=== PATIENT | male | born 1965 | race Caucasian/White ===

== ENCOUNTER 2017-03-25 10:32 | Observation (INO) | payer OTHER ==
--- NOTE | 2017-03-25 11:01 | ER Document Report ---
ED Medical Screen (RME) - General Chief Complaint: Chest Pain Stated Complaint: CHEST PAIN Time Seen by Provider: 03/25/17 10:49 Mode of Arrival: Ambulatory Information source: Patient Notes: 52-year-old male no previous medical history who did have a normal stress test presents with 1.5 hours of left sided chest pain I have greeted and performed a rapid initial assessment of this patient. A comprehensive ED assessment and evaluation of the patient, analysis of test results and completion of the medical decision making process will be conducted by additional ED providers. PHYSICAL EXAMINATION: GENERAL: Well-appearing, well-nourished and in no acute distress. HEAD: Atraumatic, normocephalic. EYES: Pupils equal round extraocular movements intact, conjunctiva are normal. ENT: Nares patent NECK: Normal range of motion LUNGS: No respiratory distress Musculoskeletal: Normal range of motion NEUROLOGICAL: Normal speech, normal gait. PSYCH: Normal mood, normal affect. SKIN: Warm, Dry, normal turgor, no rashes or lesions noted. TRAVEL OUTSIDE OF THE [place] IN LAST 30 DAYS: No - Related Data Allergies/Adverse Reactions: No Known Allergies Allergy (Verified 03/25/17 10:51) Home Medications: Current Home Medications No Home Medications 03/25/17 [History] Past Medical History Renal/ Medical History: Denies: Hx Peritoneal Dialysis Past Surgical History: Reports: Hx Orthopedic Surgery - Collar bone - Immunizations Hx Diphtheria, Pertussis, Tetanus Vaccination: Yes Physical Exam - Vital signs Vitals: Temp Pulse Resp BP Pulse Ox 98.4 F 78 14 124/87 H 96 03/25/17 10:45 03/25/17 10:45 03/25/17 10:45 03/25/17 10:45 03/25/17 10:45 Course - Vital Signs Vital signs: Temp Pulse Resp BP Pulse Ox 98.4 F 78 14 124/87 H 96 03/25/17 10:45 03/25/17 10:45 03/25/17 10:45 03/25/17 10:45 03/25/17 10:45
[2017-03-25] MEDS ORDERED: ASPIRIN 81 MG TABLET, CHEWABLE PO ONE (11:05)
[2017-03-25 11:41] LABS: ABSOLUTE EOSINOPHILS # (AUTO) 0.1 10^3/uL (0.0-0.6); ABSOLUTE LYMPHOCYTES (AUTO) 1.2 10^3/uL (0.5-4.7); ABSOLUTE MONOCYTES (AUTO) 0.4 10^3/uL (0.1-1.4); ABSOLUTE NEUT (AUTO) 2.8 10^3/uL (1.7-8.2); BASOPHILS % (AUTO) 0.3 % (0-2); EOSINOPHILS % (AUTO) 1.1 % (0-6); HEMATOCRIT 44.6 % (37.9-51.0); HEMOGLOBIN 15.3 g/dL (13.5-17.0); HGB HCT DIFFERENCE 1.3; LYMPHOCYTES % (AUTO) 26.5 % (13-45); MEAN CORPUSCULAR HEMOGLOBIN 35.6 pg (27.0-33.4); MEAN CORPUSCULAR HGB CONC 34.4 g/dL (32.0-36.0); MEAN CORPUSCULAR VOLUME 103 fl (80-97); MONOCYTES % (AUTO) 9.6 % (3-13); RED BLOOD COUNT 4.31 10^6/uL (4.35-5.55); RED CELL DISTRIBUTION WIDTH 13.3 % (11.5-14.0); SEGMENTED NEUTROPHILS % (AUTO) 62.5 % (42-78); WHITE BLOOD COUNT 4.5 10^3/uL (4.0-10.5)
--- NOTE | 2017-03-25 11:47 | ER Document Report ---
ED Cardiac - General Chief Complaint: Chest Pain Stated Complaint: CHEST PAIN Time Seen by Provider: 03/25/17 10:49 Mode of Arrival: Ambulatory Information source: Patient Notes: 52-year-old male with past medical history of chest pain 1 with unremarkable stress test around 18 months ago according to the patient presents today with the onset initially upon awakening of 3 out of 10 maximal back pain. He states the pain then radiated to his chest with 10 out of 10 intensity. He denies however any nausea, vomiting, diaphoresis, shortness of breath, calf pain, leg swelling, coughing, or fevers. He states the pain has subsided at this time. He denies any recent trips or travel. Patient does smoke but denies any family history of early heart attacks or strokes. 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 TRAVEL OUTSIDE OF THE [place] IN LAST 30 DAYS: No - HPI Patient complains to provider of: Chest pain - See above Use of: Other - See above Was the onset of pain: Gradual Quality of pain: Other - See above Chest pain radiation location: Back Severity now: None Severity at worst: Severe Pain level currently: Denies Cardiac risk factors: None Associated symptoms: Other - See above Exacerbated by: Denies Relieved by: Nothing Similar symptoms previously: Yes Recently seen / treated by doctor: No - Related Data Allergies/Adverse Reactions: No Known Allergies Allergy (Verified 03/25/17 10:51) Home Medications: Current Home Medications No Home Medications 03/25/17 [History] Past Medical History - General Information source: Patient - Social History Smoking Status: Current Some Day Smoker Cigarette use (# per day): Yes Chew tobacco use (# tins/day): No Smoking Education Provided: No Frequency of alcohol use: None Family History: Reviewed & Not Pertinent Patient has suicidal ideation: No Patient has homicidal ideation: No Renal/ Medical History: Denies: Hx Peritoneal Dialysis Past Surgical History: Reports: Hx Orthopedic Surgery - Collar bone - Immunizations Hx Diphtheria, Pertussis, Tetanus Vaccination: Yes Review of Systems - Review of Systems Constitutional: denies: Fever EENT: denies: Eye discharge, Nose discharge Cardiovascular: denies: Palpitations, Syncope Respiratory: denies: Short of breath Gastrointestinal: denies: Vomiting Genitourinary: denies: Dysuria Musculoskeletal: denies: Leg swelling Skin: Other - no hives. denies: Rash Neurological/Psychological: Other - no slurred speech -: Yes All other systems reviewed and negative Physical Exam - Vital signs Vitals: Temp Pulse Resp BP Pulse Ox 98.4 F 78 14 124/87 H 96 03/25/17 10:45 03/25/17 10:45 03/25/17 10:45 03/25/17 10:45 03/25/17 10:45 Notes: Reviewed vital signs and nursing note as charted by RN. CONSTITUTIONAL: Alert and oriented and responds appropriately to questions. Well -appearing; well-nourished HEAD: Normocephalic; atraumatic CARD: Regular rate and rhythm; no murmurs, no clicks, no rubs, no gallops; symmetric distal pulses RESP: Normal chest excursion without splinting or tachypnea; breath sounds clear and equal bilaterally ABD/GI: Normal bowel sounds; non-distended; soft, non-tender, no rebound, no guarding; no palpable organomegaly or masses BACK: The back appears normal and is non-tender to palpation, there is no CVA tenderness EXT: Normal ROM in all joints; non-tender to palpation; no cyanosis, no effusions, no edema SKIN: Normal color for age and race; warm; dry; good turgor; capillary refill < 2 seconds; no acute lesions noted NEURO: Moves all extremities equally; Motor and sensory function intact PSYCH: The patient's mood and manner are appropriate. Grooming and personal hygiene are appropriate. Course - Re-evaluation Re-evalutation: 03/25/17 11:46 Given the above history and physical examination, I have a very low pretest probability for pulmonary embolism. Given the patient's initial back pain radiating to his chest with a transient. Of 10 out of 10 pain, I will evaluate the aorta with a CT chest. I will also obtain 2 sets cardiac enzymes by 3 hours. Patient has a heart score of 2. EKG is unremarkable as recorded. Pt was provided aspirin at triage. Heart rate 78, normal sinus rhythm, normal axis, no obvious ST elevation or depression 03/25/17 12:54 First set of cardiac enzymes is unremarkable. Blood pressure stable. Repeat troponin is ordered for 1:15 PM. Patient is stating that his chest discomfort is returning. It is currently 3 out of 10. He denies any back pain. Repeat EKG and nitroglycerin has been ordered. 03/25/17 13:00 Patient has a normal CTA of the chest. 03/25/17 13:28 Repeat EKG shows a heart rate of 68, normal sinus rhythm, normal axis, no obvious ST elevation or depression. Possibly new inverted T-wave in lead III. Glycerin has improved the pain. Patient will be admitted to the cardiology service. It appears that the patient did not receive a stress test after talking directly to Dr. Plaza the rehabilitation therapy technician. - Vital Signs Vital signs: Temp Pulse Resp BP Pulse Ox 98.4 F 78 14 124/87 H 96 03/25/17 10:45 03/25/17 10:45 03/25/17 10:45 03/25/17 10:45 03/25/17 10:45 - Laboratory Result Diagrams: 03/25/17 11:15 03/25/17 11:15 Laboratory results interpreted by me: 03/25/17 11:15 RBC 4.31 L MCV 103 H MCH 35.6 H Discharge - Discharge Clinical Impression: Chest pain Qualifiers: Chest pain type: unspecified Qualified Code(s): R07.9 - Chest pain, unspecified Condition: Good Disposition: ADMITTED OBSERVATION Unit Admitted: Telemetry
[2017-03-25 11:56] LABS: ALANINE AMINOTRANSFERASE 31 U/L (21-72); ALBUMIN 4.4 g/dL (3.5-5.0); ALKALINE PHOSPHATASE 81 U/L (38-126); ANION GAP 9 (5-19); ASPARTATE AMINO TRANSFERASE 26 U/L (17-59); BILIRUBIN,DIRECT 0.4 mg/dL (0.0-0.4); BILIRUBIN,TOTAL 0.6 mg/dL (0.2-1.3); BLOOD UREA NITROGEN 17 mg/dL (7-20); CALCIUM 9.5 mg/dL (8.4-10.2); CARBON DIOXIDE 25 mmol/L (22-30); CHLORIDE 107 mmol/L (98-107); CREATINE KINASE 93 U/L (55-170); CREATININE RESULT 0.85 mg/dL (0.52-1.25); GLUCOSE 75 mg/dL (75-110); POTASSIUM 4.8 mmol/L (3.6-5.0); SODIUM 140.9 mmol/L (137-145); TOTAL PROTEIN 7.2 g/dL (6.3-8.2)
--- NOTE | 2017-03-25 12:05 | RADIOLOGY REPORT (SQ) ---
EXAM DESCRIPTION: CHEST SINGLE VIEW COMPLETED DATE/TIME: 03/25/2017 11:58 am REASON FOR STUDY: chest pain COMPARISON: 10/01/2015 EXAM PARAMETERS: NUMBER OF VIEWS: One view. TECHNIQUE: Single frontal radiographic view of the chest acquired. RADIATION DOSE: NA LIMITATIONS: None. FINDINGS: LUNGS AND PLEURA: No suspicious masses, consolidation or effusions. Nodular density in th e left base is most consistent with prominent nipple shadow. MEDIASTINUM AND HILAR STRUCTURES: No masses. Contour normal. HEART AND VASCULAR STRUCTURES: Heart normal in size. Normal vasculature. BONES: No acute findings. HARDWARE: None in the chest. OTHER: No other significant finding. IMPRESSION: NO ACUTE RADIOGRAPHIC FINDING IN THE CHEST. TECHNICAL DOCUMENTATION: JOB ID: [id number]
[2017-03-25 12:09] LABS: CREATINE KINASE MB 0.61 ng/mL (<4.55)
[2017-03-25 12:25] LABS: TROPONIN I < 0.012 ng/mL
--- NOTE | 2017-03-25 12:55 | RADIOLOGY REPORT (SQ) ---
EXAM DESCRIPTION: CTA CHEST COMPLETED DATE/TIME: 03/25/2017 12:32 pm REASON FOR STUDY: MP; eval for aortic dissection COMPARISON: None. TECHNIQUE: CT scan of the chest performed using helical scanning technique with dynamic intravenous contrast injection. Images reviewed with lung, soft tissue and bone windows. Reconstructed coronal and sagittal MPR images reviewed. Additional 3 dimensional post-processing performed to develop Maximal Intensity Projection images (OR P). All images stored on PACS. All CT scanners at this facility use dose modulation, iterative reconstruction, and/or weight based d osing when appropriate to reduce radiation dose to as low as reasonably achievable (ALARA). [facility]: Dose Right [facility]: CareDose [facility]: Dose Right [facility]: Teradose 4D [facility]: Uni2 CONTRAST TYPE AND DOSE: contrast/concentration: Isovue 370.00 mg/ml; Total Contrast Delivered: 58.0 ml; Total Saline Delivered: 79.9 ml RENAL FUNCTION: Creatinine 0.9 BUN 17 RADIATION DOSE: Up-to-date CT equipment and radiation dose reduction techniques were employed. CTDIv ol: 16.2 - 26.4 mGy. DLP: 696 mGy-cm. . LIMITATIONS: The timing of imaging was such that the pulmonary arteries are no longer opacified. FINDINGS: LUNGS AND PLEURA: There is a densely calcified 12 mm granuloma in the left lower lung. No pulmonary masses or infiltrates are present. There is no pleural effusion. AORTA AND GREAT VESSELS: No aneurysm or dissection. HEART: No pericardial effusion. PULMONARY ARTERIES: The pulmonary arteries are not opacified. HILAR AND MEDIASTINAL STRUCTURES: No identified masses or abnormal nodes. HARDWARE: None in the chest. UPPER ABDOMEN: The liver is of low attenuation. No other significant finding is seen in the abdomen. THYROID AND OTHER SOFT TISSUES: No masses. No adenopathy. BONES: No acute or significant finding. 3D MIPS: Confirm above findings. OTHER: No other significant finding. IMPRESSION: 1. There is no aortic aneurysm or dissection. 2. The pulmonary arteries are not evaluated. 3. There is fatty infiltration of the liver. TECHNICAL DOCUMENTATION: JOB ID: [id number] Quality ID # [id number]: Final reports with documentation of one or more dose reduction techniques (e.g., Au tomated exposure control, adjustment of the mA and/or kV according to patient size, use of iterative reconstruction technique) 2010 [employer]- All Rights Reserved
[2017-03-25] MEDS ORDERED: NITROGLYCERIN 2% OINTMENT 1 GM PACKET TP ONE (12:59)
[2017-03-25] MEDS: NITROGLYCERIN 0.4 MG/TAB 25 TAB/BOTTLE SL PRN ×2 (13:05→13:41)
[2017-03-25] MEDS ORDERED: NITROGLYCERIN 0.4 MG/TAB 25 TAB/BOTTLE SL PRN (13:37)
[2017-03-25] MEDS ORDERED: ONDANSETRON HCL INJ/PF 4 MG/2 ML SDV IV PRN (13:37)
[2017-03-25] MEDS ORDERED: TEMAZEPAM 15 MG CAPSULE PO PRN (13:37)
[2017-03-25] MEDS ORDERED: LIDOCAINE 2% VISCOUS SOLN 20 ML UDCUP PO ONE (14:01)
[2017-03-25] MEDS ORDERED: MAG HYDROX/AL HYDROX/SIMETH SUSP 30 ML UDCUP PO ONE (14:01)
[2017-03-25] MEDS ORDERED: METOCLOPRAMIDE HCL ORAL SOLN 10 MG/10 ML UDCUP PO ONE (14:01)
--- NOTE | 2017-03-25 15:34 | PDOC H&P ---
History of Present Illness Admission Date/PCP: 03/25/17 13:33 Patient complains of: Left sided chest pain History of Present Illness: REINA HODGE is a 52-year-old male with past medical history of chest pain that is nonradiating, tobacco abuse, unknown lipids and GERD; with unremarkable stress test around 18 months ago. He presents today with the onset of left sided chest pain that began initially upon awakening that he rates 3 out of 10 and began initially in his back. He states the pain then radiated to his chest with 10 out of 10 intensity. He denies however any nausea, vomiting, diaphoresis, shortness of breath, calf pain, leg swelling, coughing, or fevers. He states the pain has subsided by the time he reached the ER. The pain did reoccur an hour later in the ER and was relieved with one sl nitroglycerine. He denies any recent trips or travel. Patient does smoke but denies any family history of early heart attacks or strokes. 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 Past Medical History Cardiac Medical History: Reports: None Pulmonary Medical History: Reports: None EENT Medical History: Reports: None Neurological Medical History: Reports: None Endocrine Medical History: Reports: None Renal/ Medical History: Reports: None Malignancy Medical History: Reports: None GI Medical History: Reports: Gastroesophageal Reflux Disease Musculoskeltal Medical History: Reports: None Skin Medical History: Reports: None Psychiatric Medical History: Reports: Tobacco Dependency Traumatic Medical History: Reports: None Hematology: Reports: None Infectious Medical History: Reports: None Past Surgical History Past Surgical History: Reports: Orthopedic Surgery - Collar bone Social History Information Source: Patient Lives with: Family Smoking Status: Current Some Day Smoker Cigarettes Packs Per Day: 0.5 Number of Years Smokin Frequency of Alcohol Use: Social Hx Recreational Drug Use: No Hx Prescription Drug Abuse: No - Advance Directive Resuscitation Status: Full Code Surrogate healthcare decision maker:: , Yojana Family History Family History: Hypertension Parental Family History Reviewed: Yes Children Family History Reviewed: Yes Sibling(s) Family History Reviewed.: Yes Medication/Allergy Home Medications: No Home Medications 03/25/17 Allergies/Adverse Reactions: No Known Allergies Allergy (Verified 03/25/17 10:51) Review of Systems Constitutional: ABSENT: chills, fever(s), headache(s), weight gain, weight loss Eyes: ABSENT: visual disturbances Ears: ABSENT: hearing changes Cardiovascular: PRESENT: chest pain Respiratory: ABSENT: cough, hemoptysis Gastrointestinal: ABSENT: abdominal pain, constipation, diarrhea, hematemesis, hematochezia, nausea, vomiting Genitourinary: ABSENT: dysuria, hematuria Musculoskeletal: ABSENT: joint swelling Integumentary: ABSENT: rash, wounds Neurological: ABSENT: abnormal gait, abnormal speech, confusion, dizziness, focal weakness, syncope Psychiatric: ABSENT: anxiety, depression, homidical ideation, suicidal ideation Endocrine: ABSENT: cold intolerance, heat intolerance, polydipsia, polyuria Hematologic/Lymphatic: ABSENT: easy bleeding, easy bruising Physical Exam Vital Signs: Temp Pulse Resp BP Pulse Ox 98.4 F 78 18 123/87 H 97 03/25/17 10:45 03/25/17 10:45 03/25/17 14:01 03/25/17 14:00 03/25/17 14:01 General appearance: PRESENT: no acute distress, well-developed, well-nourished Head exam: PRESENT: atraumatic, normocephalic Eye exam: PRESENT: conjunctiva pink, EOMI, PERRLA. ABSENT: scleral icterus Ear exam: PRESENT: normal external ear exam Mouth exam: PRESENT: moist, tongue midline Neck exam: ABSENT: carotid bruit, JVD, lymphadenopathy, thyromegaly Respiratory exam: PRESENT: clear to auscultation ame. ABSENT: rales, rhonchi, wheezes Cardiovascular exam: PRESENT: RRR. ABSENT: diastolic murmur, rubs, systolic murmur Pulses: PRESENT: normal dorsalis pedis pul Vascular exam: PRESENT: normal capillary refill GI/Abdominal exam: PRESENT: normal bowel sounds, soft. ABSENT: distended, guarding, mass, organolmegaly, rebound, tenderness Rectal exam: PRESENT: deferred Extremities exam: PRESENT: full ROM. ABSENT: calf tenderness, clubbing, pedal edema Neurological exam: PRESENT: alert, awake, oriented to person, oriented to place , oriented to time, oriented to situation, CN II-XII grossly intact. ABSENT: motor sensory deficit Psychiatric exam: PRESENT: appropriate affect, normal mood. ABSENT: homicidal ideation, suicidal ideation Skin exam: PRESENT: dry, intact, warm. ABSENT: cyanosis, rash Results Laboratory Results: 03/25/17 13:55 Troponin I < 0.012 Impressions: Chest X-Ray 03/25/17 11:05 IMPRESSION: NO ACUTE RADIOGRAPHIC FINDING IN THE CHEST. Chest/Abdomen CTA 03/25/17 11:43 IMPRESSION: 1. There is no aortic aneurysm or dissection. 2. The pulmonary arteries are not evaluated. 3. There is fatty infiltration of the liver. Assessment & Plan - Diagnosis (1) Chest pain Qualifiers: Chest pain type: unspecified Qualified Code(s): R07.9 - Chest pain, unspecified Is this a current diagnosis for this admission?: YesPlan: Admit to telemetry on observation, serial troponins x 3, . Cardiolite stress test tomorrow (2) Tobacco abuse Is this a current diagnosis for this admission?: YesPlan: Counseled on tobacco cessation . Contemplating (3) GERD (gastroesophageal reflux disease) Qualifiers: Esophagitis presence: esophagitis presence not specified Qualified Code(s): K21.9 - Gastro-esophageal reflux disease without esophagitis Is this a current diagnosis for this admission?: YesPlan: PPI, GI cocktail - Time Time Spent: 50 to 70 Minutes Critical Time spent with patient: 25-34 minutes Smoking Cessation Education: 3 to 10 minutes Medications reviewed and adjusted accordingly: Yes Anticipated discharge: Home Within: within 24 hours
--- NOTE | 2017-03-25 17:53 | EKG REPORT ---
SEVERITY:- NORMAL ECG - SINUS RHYTHM : Confirmed by: Nay Nieves 25-Mar-2017 17:53:04
--- NOTE | 2017-03-25 17:53 | EKG REPORT ---
SEVERITY:- OTHERWISE NORMAL ECG - SINUS ARRHYTHMIA, RATE 57-77 : Confirmed by: Nay Nieves 25-Mar-2017 17:53:00
[2017-03-25] MEDS: LANSOPRAZOLE 30 MG TAB.RAP.DR PO SCH (18:14)
[2017-03-25] MEDS ORDERED: ATORVASTATIN CALCIUM 40 MG TABLET PO SCH (22:00)
[2017-03-26] MEDS: LANSOPRAZOLE 30 MG TAB.RAP.DR PO SCH (05:18)
[2017-03-26 06:21] LABS: CHOLESTEROL 185.62 mg/dL (0-200); Direct HDL 65 mg/dL (>40); TRIGLYCERIDES 93 mg/dL (<150)
[2017-03-26 06:32] LABS: DIRECT LDL 105 mg/dL (<100)
[2017-03-26] MEDS ORDERED: ASPIRIN 81 MG TABLET, CHEWABLE PO SCH (10:00)
[2017-03-26 10:04] VITALS: BP 141/89
[2017-03-26] MEDS ORDERED: REGADENOSON INJ 0.4 MG/5 ML DISP.SYRIN IV ONE (12:14)
--- NOTE | 2017-03-26 12:19 | RADIOLOGY REPORT (SQ) ---
EXAM DESCRIPTION: U/S ABDOMEN LTD W/DOPPLER COMPLETED DATE/TIME: 03/26/2017 12:07 pm REASON FOR STUDY: RUQ u/s due to epigastric/CP COMPARISON: None. TECHNIQUE: Dynamic and static grayscale images acquired of the abdomen and recorded on PACS. Additio nal selected color Doppler and spectral images recorded. LIMITATIONS: None. FINDINGS: PANCREAS: MIDLINE PANCREAS UNREMARKABLE LIVER: No masses. Echotexture normal. LIVER VASCULATURE: Normal directional flow of the main portal vein and hepatic veins. GALLBLADDER: No stones. Normal wall thickness. No pericholecystic fluid. ULTRASOUND-DETECTED VENTURA'S SIGN: Negative. INTRAHEPATIC DUCTS AND COMMON DUCT: CBD and intrahepatic ducts normal caliber. No filling defects. INFERIOR VENA CAVA: Normal flow. AORTA: No aneurysm. RIGHT KIDNEY: Normal size. Normal echogenicity. No solid or suspicious masses. No hydronephrosis. No calcifications. PERITONEAL AND RIGHT PLEURAL SPACE: No ascites or effusions. OTHER: No other significant findings. IMPRESSION: NORMAL RIGHT UPPER QUADRANT ULTRASOUND. TECHNICAL DOCUMENTATION: JOB ID: [id number] [employer]- All Rights Reserved
--- NOTE | 2017-03-26 14:24 | DRAGON STRESS TEST REPORT ---
Intravenous Lexiscan Cardiolite stress test using single photon emmision computerized tomography. Date of procedure: 2016. Ordering Provider: Dr. Bowman. Patient's status : In Patient. Indication: Chest pain. Coronary risk factors: Age, dyslipidemia, and tobacco abuse disorder. Resting EKG: Sinus Rhythm. Within normal limits Stress EKG:[ No changes of ischemia. Reason for termination: Protocol. Conclusions: Normal EKG and hemodynamic response to IV Lexiscan. The patient had no chest pain or discomfort, and there were no arrhythmias seen. The patient complained of dizziness and his blood pressure was 150/101. After drinking Pepsi the dizziness resolved and his blood pressure was 146/86. Nuclear data: At rest the patient was given 12.13 millicuries of technetium 99m sestamibi injected intravenously. As per protocol rest non gated SPECT images were obtained. Subsequently the patient was given intravenous Lexiscan at a dose of 0.4 mg in 5 mL intravenously, followed by flush with normal saline. Subsequently the stress dose of 37.4 millicuries of technetium 99m sestamibi was injected intravenously. As per protocol stress gated images were obtained. Nuclear interpretation: Review of images showed that all segments of the myocardium had normal perfusion at rest, and normal perfusion post stress with IV Lexiscan. All segments of the myocardium had normal motion, contraction, and thickening by gated study. T. I D. ratio was normal at 1.12. Computer read rest, and stress left ventricular ejection fraction were 60 %, and 61 %, respectively. Conclusion: 1. There is no scintigraphic evidence of Lexiscan induced myocardial ischemia. 2. There is no scintigraphic evidence of myocardial infarction/scar. Recommendations: Aggressive risk factor modification, and treating the underlying co- morbidities. [facility]
--- NOTE | 2017-03-26 15:07 | PDOC DISCHARGE SUMMARY ---
General - Admit/Disc Date/PCP Admission Date/Primary Care Provider: 03/25/17 13:33 Discharge Date: 03/26/17 - Discharge Diagnosis (1) Chest pain Is this a current diagnosis for this admission?: Yes (2) GERD (gastroesophageal reflux disease) Is this a current diagnosis for this admission?: Yes (3) Tobacco abuse Is this a current diagnosis for this admission?: Yes - Additional Information Resuscitation Status: Full Code Discharge Diet: Cardiac Discharge Activity: Activity As Tolerated Home Medications: Lansoprazole [Prevacid 30 mg Odt Tablet] 30 mg PO DAILY #30 tab.brandi. 03/26/17 History of Present Illness Patient complains of: chest pain History of Present Illness: REINA HODGE is a 52-year-old male with past medical history of chest pain that is nonradiating, tobacco abuse, unknown lipids and GERD; with unremarkable stress test around 18 months ago. He presents today with the onset of left sided chest pain that began initially upon awakening that he rates 3 out of 10 and began initially in his back. He states the pain then radiated to his chest with 10 out of 10 intensity. He denies however any nausea, vomiting, diaphoresis, shortness of breath, calf pain, leg swelling, coughing, or fevers. He states the pain has subsided by the time he reached the ER. The pain did reoccur an hour later in the ER and was relieved with one sl nitroglycerine. He denies any recent trips or travel. Patient does smoke but denies any family history of early heart attacks or strokes. 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 Hospital Course Hospital Course: Admitted for chest pain. Ruled out for acute LA by serial cardiac enzymes. Cardiolite stress test negative. Right upper quadrant ultrasound negative. Patient with chronic gastroesophageal reflux disease and chest pain thought to be secondary to esophageal spasm. Patient started on Prevacid 30 mg daily. Referred to GI as an outpatient. Physical Exam Vital Signs: Temp Pulse Resp BP Pulse Ox 97.2 F 85 18 141/89 H 100 03/26/17 14:39 03/26/17 14:39 03/26/17 14:39 03/26/17 14:39 03/26/17 14:39 Intake & Output 03/25/17 03/26/17 03/27/17 06:59 06:59 06:59 Intake Total 300 480 Output Total 1000 Balance 300 -520 Weight 88.3 kg GENERAL: No acute distress HEENT: Conjunctiva clear, nonicteric, moist mucous membranes, no JVD, midline trachea RESPIRATORY: Clear to auscultation bilaterally, no wheezes, no rhonchi CARDIAC: Regular rate and rhythm, no murmurs/gallops/rubs ABDOMEN: Soft, nondistended, nontender, positive bowel sounds, no rebound, no guarding EXTREMETIES: No edema, cyanosis, clubbing NEUROLOGIC: Alert, oriented to person/place/time, CN's grossly intact, no focal deficits SKIN: No rash, wounds PSYCH: Normal mood, normal affect Results Laboratory Results: 03/26/17 05:54 Triglycerides 93 Cholesterol 185.62 LDL Cholesterol Direct 105 H VLDL Cholesterol 19.0 HDL Cholesterol 65 03/25/17 03/25/17 03/26/17 13:55 19:37 01:45 Troponin I < 0.012 < 0.012 < 0.012 Labs- Entire Visit 03/25/17 03/25/17 03/25/17 11:15 11:15 11:15 WBC 4.5 RBC 4.31 L Hgb 15.3 Hct 44.6 MCV 103 H MCH 35.6 H MCHC 34.4 RDW 13.3 Plt Count 234 Seg Neutrophils % 62.5 Lymphocytes % 26.5 Monocytes % 9.6 Eosinophils % 1.1 Basophils % 0.3 Absolute Neutrophils 2.8 Absolute Lymphocytes 1.2 Absolute Monocytes 0.4 Absolute Eosinophils 0.1 Absolute Basophils 0.0 Sodium 140.9 Potassium 4.8 Chloride 107 Carbon Dioxide 25 Anion Gap 9 BUN 17 Creatinine 0.85 Est GFR ( Amer) > 60 Est GFR (Non-Af Amer) > 60 Glucose 75 Calcium 9.5 Total Bilirubin 0.6 Direct Bilirubin 0.4 Indirect Bilirubin Not Reportable Neonat Total Bilirubin Not Reportable AST 26 ALT 31 Alkaline Phosphatase 81 Creatine Kinase 93 CK-MB (CK-2) 0.61 Troponin I < 0.012 Total Protein 7.2 Albumin 4.4 Triglycerides Cholesterol LDL Cholesterol Direct VLDL Cholesterol HDL Cholesterol 03/25/17 03/25/17 03/26/17 13:55 19:37 01:45 WBC RBC Hgb Hct MCV MCH MCHC RDW Plt Count Seg Neutrophils % Lymphocytes % Monocytes % Eosinophils % Basophils % Absolute Neutrophils Absolute Lymphocytes Absolute Monocytes Absolute Eosinophils Absolute Basophils Sodium Potassium Chloride Carbon Dioxide Anion Gap BUN Creatinine Est GFR ( Amer) Est GFR (Non-Af Amer) Glucose Calcium Total Bilirubin Direct Bilirubin Indirect Bilirubin Neonat Total Bilirubin AST ALT Alkaline Phosphatase Creatine Kinase CK-MB (CK-2) Troponin I < 0.012 < 0.012 < 0.012 Total Protein Albumin Triglycerides Cholesterol LDL Cholesterol Direct VLDL Cholesterol HDL Cholesterol 03/26/17 05:54 WBC RBC Hgb Hct MCV MCH MCHC RDW Plt Count Seg Neutrophils % Lymphocytes % Monocytes % Eosinophils % Basophils % Absolute Neutrophils Absolute Lymphocytes Absolute Monocytes Absolute Eosinophils Absolute Basophils Sodium Potassium Chloride Carbon Dioxide Anion Gap BUN Creatinine Est GFR ( Amer) Est GFR (Non-Af Amer) Glucose Calcium Total Bilirubin Direct Bilirubin Indirect Bilirubin Neonat Total Bilirubin AST ALT Alkaline Phosphatase Creatine Kinase CK-MB (CK-2) Troponin I Total Protein Albumin Triglycerides 93 Cholesterol 185.62 LDL Cholesterol Direct 105 H VLDL Cholesterol 19.0 HDL Cholesterol 65 Impressions: Chest X-Ray 03/25/17 11:05 IMPRESSION: NO ACUTE RADIOGRAPHIC FINDING IN THE CHEST. Chest/Abdomen CTA 03/25/17 11:43 IMPRESSION: 1. There is no aortic aneurysm or dissection. 2. The pulmonary arteries are not evaluated. 3. There is fatty infiltration of the liver. Abdomen Ultrasound 03/26/17 10:46 IMPRESSION: NORMAL RIGHT UPPER QUADRANT ULTRASOUND. Qualifiers PATEINT BEING DISCHARGED WITH ANY OF THE FOLLOWING DIAGNOSIS?: No Plan Time Spent: Less than 30 Minutes
== END 2017-03-26 14:56 | disposition home or self-care (01) ==
LOC: ER 10:32 → EH 13:33 → UNDOADMOB 13:54 → EH 13:54 → 4N 16:55
PROVIDERS: ADMIT Internal Medicine; ATTEND Internal Medicine
PROC: HZ31ZZZ Individual Counseling for Substance Abuse Treatment, Behavioral (ICD-10-PCS; principal; 2017-03-25)
DX: R07.9 Chest pain, unspecified (principal); K21.9 Gastro-esophageal reflux disease without esophagitis; F17.210 Nicotine dependence, cigarettes, uncomplicated; M54.9 Dorsalgia, unspecified; Z82.49 Family history of ischemic heart disease and other diseases of the circulatory system
CPT/HCPCS: 93005; 99285; 36415 ×2; 82553; 82550; 85025; 80053; 84484 ×2; 80061; 93017; 71010; 76705; 93976; 78452; 71275; 93010; 99406; G0378 ×3; A9500; J2785; J3490 ×2; Q9969

== ENCOUNTER 2017-04-11 09:49 | Day surgery (SDC) | payer OTHER ==
[2017-04-11] MEDS ORDERED: ALBUTEROL SULFATE 0.083% NEB 2.5 MG/3 ML AMPUL NEB ONE (11:09)
[2017-04-11] MEDS ORDERED: ALBUTEROL SULFATE 0.083% NEB 2.5 MG/3 ML AMPUL NEB PRN (11:15)
[2017-04-11] MEDS ORDERED: KETOROLAC TROMETHAMINE INJ/PF 30 MG/1 ML SDV ONE (11:49)
[2017-04-11] MEDS ORDERED: ACETAMINOPHEN 100 ML IV ONE (11:50)
[2017-04-11] MEDS ORDERED: PROPOFOL INJ 200 MG/20 ML VIAL IV ONE (12:00)
[2017-04-11] MEDS ORDERED: MORPHINE SULFATE 10 MG/ML INJ IV PRN (12:17)
[2017-04-11] MEDS ORDERED: PROMETHAZINE HCL INJ 25 MG/1 ML VIAL IV PRN ×2 (12:17)
[2017-04-11] MEDS ORDERED: DIPHENHYDRAMINE HCL 50 MG/ML VIAL IV PRN (12:17)
[2017-04-11] MEDS ORDERED: MEPERIDINE HCL/PF INJ 25 MG/1 ML DISP.SYRIN IV PRN (12:17)
[2017-04-11] MEDS ORDERED: FENTANYL CITRATE INJ/PF 100 MCG/2 ML AMPUL IV PRN ×3 (12:17)
[2017-04-11] MEDS ORDERED: OXYCODONE-ACETAMINOPHEN 5-325 MG TABLET PO PRN ×2 (12:17)
[2017-04-11] MEDS ORDERED: DEXTROSE 5%-1/2 NORMAL SALINE 1,000 ML IV PRN (12:35)
[2017-04-11] MEDS ORDERED: ACETAMINOPHEN 325 MG TABLET PO PRN (12:36)
[2017-04-11] MEDS ORDERED: SIMETHICONE 80 MG TAB.CHEW PO PRN (12:36)
[2017-04-11] MEDS ORDERED: PROMETHAZINE HCL INJ 25 MG/1 ML VIAL INJ PRN (12:37)
--- NOTE | 2017-04-11 14:24 | Operative Report ---
Operative Report DATE OF SURGERY: 04/11/17 Operative Report: The risks benefits and alternatives of the procedure explained to the patient in detail and informed consent is obtained.A GIF Olympus video scope was inserted into the patient's mouth and hypopharynx, the esophagus is identified intubated and insufflated, the scope was then advanced through the esophagus stomach and duodenum ,retroflexion maneuver is done, the esophagus stomach and first and second portions of the duodenum examined PREOPERATIVE DIAGNOSIS: Epigastric pain POSTOPERATIVE DIAGNOSIS: Esophagitis Climax classification grade B. Gastritis and gastric ulcers status post biopsy. Duodenitis OPERATION: EGD with biopsy SURGEON: REBEKAH GARCIA ANESTHESIA: LMAC TISSUE REMOVED OR ALTERED: Gastric specimen obtained to rule out Helicobacter pylori COMPLICATIONS: None. ESTIMATED BLOOD LOSS: None. INTRAOPERATIVE FINDINGS: As described above. PROCEDURE: Patient tolerated procedure well. No immediate postprocedure complications are noted. Patient discharged in good condition. Discharge date 04/11/2017. Discharge diet: Regular. Discharge activity: Regular. 2-3 week follow-up to discuss findings. Patient is to start on [id number] PPI treatment. We will wait on biopsies. Patient is instructed to call the office or proceed to the emergency room should there be any further problems or questions.
[2017-04-11 14:35] VITALS: BP 144/98
== END 2017-04-11 14:00 | disposition home or self-care (01) ==
LOC: OROUT 09:49
PROVIDERS: ATTEND Internal Medicine Gastroenterology
PROC: 0DB68ZX Excision of Stomach, Via Natural or Artificial Opening Endoscopic, Diagnostic (ICD-10-PCS; principal; 2017-04-11 12:00)
DX: K21.0 Gastro-esophageal reflux disease with esophagitis (principal); K29.70 Gastritis, unspecified, without bleeding; K29.80 Duodenitis without bleeding; K25.9 Gastric ulcer, unspecified as acute or chronic, without hemorrhage or perforation; F17.210 Nicotine dependence, cigarettes, uncomplicated; Z79.1 Long term (current) use of non-steroidal anti-inflammatories (NSAID)
CPT/HCPCS: 43239; 88305 ×2; J1885; J2704; J0131; 740

== ENCOUNTER 2017-04-12 01:36 | Emergency (ER) | payer OTHER ==
[2017-04-12 01:45] VITALS: BP 151/96
[2017-04-12] MEDS ORDERED: LIDOCAINE 2% JELLY 5 ML TUBE TOP ONE (02:35)
[2017-04-12] MEDS ORDERED: ACETAMINOPHEN 325 MG TABLET PO ONE (02:35)
--- NOTE | 2017-04-12 02:38 | ER Document Report ---
ED General - General Chief Complaint: Ear Pain Stated Complaint: LEFT EAR PAIN Time Seen by Provider: 04/12/17 01:57 Notes: Patient is a 52-year-old male without past medical history who presents with 3 days of left ear pain. He does describe it as a severe, constant, throbbing pain. Nothing improves or worsens the pain. States that he was evaluated yesterday for this pain and was told he had an otitis externa. He was started on Ciprodex drops at that time which he states has not yet improved his symptoms. States that symptoms started after he was cleaning his ears with a Q- tip and believes that part of the cotton may be stuck inside the ear. No history of similar symptoms in the past. He denies any fever or constitutional symptoms. TRAVEL OUTSIDE OF THE [place] IN LAST 30 DAYS: No - Related Data Allergies/Adverse Reactions: No Known Allergies Allergy (Verified 03/25/17 10:51) Past Medical History - General Information source: Patient - Social History Smoking Status: Never Smoker Frequency of alcohol use: None Drug Abuse: None Lives with: Spouse/Significant other Family History: Hypertension - Past Medical History Cardiac Medical History: Denies: Hx Coronary Artery Disease, Hx Heart Attack, Hx Hypertension Pulmonary Medical History: Denies: Hx Asthma, Hx Bronchitis, Hx COPD, Hx Pneumonia Neurological Medical History: Denies: Hx Cerebrovascular Accident, Hx Seizures Renal/ Medical History: Denies: Hx Peritoneal Dialysis GI Medical History: Reports: Hx Gastroesophageal Reflux Disease Musculoskeltal Medical History: Denies Hx Arthritis Past Surgical History: Reports: Hx Orthopedic Surgery - Collar bone - Immunizations Hx Diphtheria, Pertussis, Tetanus Vaccination: Yes Review of Systems - Review of Systems Notes: Constitutional: Negative for fever. HENT: Negative for sore throat. Positive for left ear pain Eyes: Negative for visual changes. Cardiovascular: Negative for chest pain. Respiratory: Negative for shortness of breath. Gastrointestinal: Negative for abdominal pain, vomiting or diarrhea. Genitourinary: Negative for dysuria. Musculoskeletal: Negative for back pain. Skin: Negative for rash. Neurological: Negative for headaches, weakness or numbness. 10 point ROS negative except as marked above and in HPI. Physical Exam - Vital signs Vitals: Temp Pulse Resp BP Pulse Ox 97.7 F 67 18 151/96 H 96 04/12/17 01:42 04/12/17 01:42 04/12/17 01:42 04/12/17 01:42 04/12/17 01:42 Interpretation: Hypertensive Notes: PHYSICAL EXAMINATION: GENERAL: Well-appearing, well-nourished and in no acute distress. HEAD: Atraumatic, normocephalic. EYES: sclera anicteric, conjunctiva are normal. ENT: Moist mucous membranes. There is significant swelling to the external ear canal on the left preventing appropriate otoscope examination. Right TM clear NECK: Normal range of motion LUNGS: Normal work of breathing HEART: 2+ radial pulses bilaterally EXTREMITIES: no pitting or edema. No cyanosis. NEUROLOGICAL: No focal neurological deficits. Moves all extremities spontaneously and on command. PSYCH: Normal mood, normal affect. SKIN: Warm, Dry, normal turgor, no rashes or lesions noted. Course - Re-evaluation Re-evalutation: 04/12/17 02:36 Patient presents with significant external ear canal swelling, so pronounced that it is difficult to get an appropriate otoscopic examination. When I do get her on the area of swelling there is a white material behind this area but it is difficult to delineate if this is pus or a retained piece of cotton from a Q-tip. I did attempt to retrieve this using an alligator forceps but was unable to remove any significant material due to my inability to actually see well around the area. Patient is ready on Ciprodex drops and I have instructed him continue this. He will also be started on topical lidocaine. I have instructed him to follow-up with an ENT doctor if this does not resolve or his primary care physician. At this time will discharge with return precautions and follow-up recommendations. Verbal discharge instructions given a the bedside and opportunity for questions given. Medication warnings reviewed. Patient is in agreement with this plan and has verbalized understanding of return precautions and the need for primary care follow-up in the next 24-72 hours. - Vital Signs Vital signs: Temp Pulse Resp BP Pulse Ox 97.7 F 67 18 151/96 H 96 04/12/17 01:42 04/12/17 01:42 04/12/17 01:42 04/12/17 01:42 04/12/17 01:42 Discharge - Discharge Clinical Impression: Left ear pain Left otitis externa Qualifiers: Otitis externa type: unspecified type Chronicity: acute Qualified Code(s): H60.502 - Unspecified acute noninfective otitis externa, left ear Condition: Good Disposition: HOME, SELF-CARE Additional Instructions: Continue to use the eardrops as prescribed. You may insert the viscous lidocaine into the area every 4 hours as needed for pain. For your pain: Take ibuprofen 600 mg and acetaminophen 1000 mg every 6 hours together as needed for pain. Please follow-up with your primary care doctor or an ENT doctor in the next several days particularly if your symptoms are not improving. Return to the emergency department sooner if you develop a fever of greater than 101F, worsening pain, headache, confusion, or any other symptoms that are worrisome to you.
== END 2017-04-12 02:55 | disposition home or self-care (01) ==
LOC: ER 01:36
DX: H60.502 Unspecified acute noninfective otitis externa, left ear (principal); H92.02 Otalgia, left ear
CPT/HCPCS: 99282

== ENCOUNTER 2017-04-16 13:48 | Emergency (ER) | payer OTHER ==
[2017-04-16 14:08] VITALS: BP 145/100
[2017-04-16] MEDS ORDERED: DOCUSATE SODIUM 100 MG CAPSULE LFT_EAR ONE (14:14)
--- NOTE | 2017-04-16 14:36 | ER Document Report ---
HPI - HPI Patient complains to provider of: left ear pain Onset: Other - 3 weeks Onset/Duration: Persistent Pain Level: 4 Context: 52-year-old male complaining of persistent left ear pain. The cotton off a Q- tip got stuck in his left ear canal 3 weeks ago. He came to the emergency room twice and treated for otitis externa and the canal is very swollen. He is using Ciprodex drops. No fever. Associated Symptoms: None Exacerbated by: Movement Relieved by: Denies Similar symptoms previously: No Recently seen / treated by doctor: No - ROS ROS below otherwise negative: Yes Systems Reviewed and Negative: Yes All other systems reviewed and negative - REPRODUCTIVE Reproductive: DENIES: : - DERM Skin Color: Normal Past Medical History - General Information source: Patient - Social History Smoking Status: Current Every Day Smoker Frequency of alcohol use: None Drug Abuse: None Lives with: Family Family History: Hypertension Patient has suicidal ideation: No Patient has homicidal ideation: No Renal/ Medical History: Denies: Hx Peritoneal Dialysis GI Medical History: Reports: Hx Gastroesophageal Reflux Disease Past Surgical History: Reports: Hx Orthopedic Surgery - Collar bone - Immunizations Hx Diphtheria, Pertussis, Tetanus Vaccination: Yes Vertical Provider Document - CONSTITUTIONAL Agree With Documented VS: Yes Exam Limitations: No Limitations - INFECTION CONTROL TRAVEL OUTSIDE OF THE [place] IN LAST 30 DAYS: No - HEENT HEENT: Normocephalic. negative: Tympanic Membrane Red, Tympanic Membrane Bulging Notes: cotton in left ear canal, no swelling or erythema. external ear no swelling, mastoid OK. - NECK Neck: Lymphadenopathy-Left, Lymphadenopathy-Right. negative: Supple - RESPIRATORY Respiratory: Breath Sounds Normal, No Respiratory Distress O2 Sat by Pulse Oximetry: 97 - CARDIOVASCULAR Cardiovascular: Regular Rate, Regular Rhythm - NEURO Level of Consciousness: Awake, Alert - DERM Integumentary: Warm, Dry, No Rash Course - Re-evaluation Re-evalutation: 04/18/17 02:01 late entry: the cotton was removed with irrigation, some inflammation of the canal seen behind where the cotton was so had the pt continue the ciprodex drops for a few days. - Vital Signs Vital signs: Temp Pulse Resp BP Pulse Ox 97.4 F 75 145/100 H 97 04/16/17 13:58 04/16/17 13:58 04/16/17 13:58 04/16/17 13:58 Discharge - Discharge Clinical Impression: q tip cotton removal from left ear Condition: Good Disposition: HOME, SELF-CARE Instructions: Acetaminophen, Ciprofloxacin ([facility]), Use of Ear Drops ([facility]), Foreign Object in the Ear ([facility]) Additional Instructions: continue the ear drops this week 4 drops twice a day do not use qitps anymore to er any concerns Please complete the patient satisfaction survey if you get one, and return it.. If you do not receive a survey, then you can go to the [facility] website, [email or web address] and place your comments about your very good care. Thank you very much. It was a pleasure being your medical provider today. Forms: Return to Work
== END 2017-04-16 14:40 | disposition home or self-care (01) ==
LOC: ER 13:48
DX: T16.2XXA Foreign body in left ear, initial encounter (principal); X58.XXXA Exposure to other specified factors, initial encounter; H60.92 Unspecified otitis externa, left ear; H92.02 Otalgia, left ear; R59.0 Localized enlarged lymph nodes; F17.200 Nicotine dependence, unspecified, uncomplicated
CPT/HCPCS: 99282

== ENCOUNTER 2017-11-05 08:38 | Emergency (ER) | payer OTHER ==
[2017-11-05 08:44] VITALS: BP 135/89
--- NOTE | 2017-11-05 09:37 | ER Document Report ---
ED General - General Chief Complaint: Foot Pain Stated Complaint: FOOT PAIN Time Seen by Provider: 11/05/17 08:57 Mode of Arrival: Ambulatory Information source: Patient TRAVEL OUTSIDE OF THE [place] IN LAST 30 DAYS: No - HPI Notes: 52-year-old male presents today with complaints of a rash to the bottom of his left foot for over 1 year. States rash comes and goes, and never quite goes away. Reports he is intermittently itchy. Denies any drainage, redness or swelling of the area. Patient states he has never been seen by a provider for this. Denies that rash has spread. Has tried [id number]-kih-[id number] antifungal medication without relief. Able to bear full weight. Denies fevers, chills, chest pain,palpitations, shortness of breath, dyspnea, nausea, vomiting, diarrhea, abdominal pain, hematuria,blurred vision, double vision, loss of vision, speech changes, LH, dizziness, syncope, headaches, wheezing, ST, URI, neck pain, weakness, bowel or bladder dysfunction, saddle anesthesia, numbness or tingling in bilateral upper or lower extremities equally, muscle paralysis, weakness in bilateral upper or lower extremities equally. denies IV drug use. - Related Data Allergies/Adverse Reactions: No Known Allergies Allergy (Verified 11/05/17 09:03) Past Medical History - General Information source: Patient - Social History Smoking Status: Current Every Day Smoker Chew tobacco use (# tins/day): No Frequency of alcohol use: Occasional Drug Abuse: None Family History: Hypertension Patient has suicidal ideation: No Patient has homicidal ideation: No - Past Medical History Cardiac Medical History: Denies: Hx Coronary Artery Disease, Hx Heart Attack, Hx Hypertension Pulmonary Medical History: Denies: Hx Asthma, Hx Bronchitis, Hx COPD, Hx Pneumonia Neurological Medical History: Denies: Hx Cerebrovascular Accident, Hx Seizures Renal/ Medical History: Denies: Hx Peritoneal Dialysis GI Medical History: Reports: Hx Gastroesophageal Reflux Disease Musculoskeltal Medical History: Denies Hx Arthritis Past Surgical History: Reports: Hx Orthopedic Surgery - Collar bone - Immunizations Hx Diphtheria, Pertussis, Tetanus Vaccination: Yes Review of Systems - Review of Systems Notes: REVIEW OF SYSTEMS: CONSTITUTIONAL : Denies fever, chills, or sweats. Denies recent illness. EENT: Denies eye, ear, throat, or mouth pain or symptoms. Denies nasal or sinus congestion or discharge. Denies throat, tongue, or mouth swelling or difficulty swallowing. CARDIOVASCULAR: Denies chest pain. Denies palpitations or racing or irregular heart beat. Denies ankle edema. RESPIRATORY: Denies cough, cold, or chest congestion. Denies shortness of breath, difficulty breathing, or wheezing. GASTROINTESTINAL: Denies abdominal pain or distention. Denies nausea, vomiting , or diarrhea. Denies blood in vomitus, stools, or per rectum. Denies black, tarry stools. Denies constipation. GENITOURINARY: Denies difficulty urinating, painful urination, burning, frequency, blood in urine, or discharge. MUSCULOSKELETAL: Denies back or neck pain or stiffness. Denies joint pain or swelling. SKIN: noted rash. no lesions or sores. HEMATOLOGIC : Denies easy bruising or bleeding. LYMPHATIC: Denies swollen, enlarged glands. NEUROLOGICAL: Denies confusion or altered mental status. Denies passing out or loss of consciousness. Denies dizziness or lightheadedness. Denies headache. Denies weakness or paralysis or loss of use of either side. Denies problems with gait or speech. Denies sensory loss, numbness, or tingling. Denies seizures. PSYCHIATRIC: Denies anxiety or stress. Denies depression, suicidal ideation, or homicidal ideation. ALL OTHER SYSTEMS REVIEWED AND NEGATIVE. Dictation was performed using [employer] voice recognition software PHYSICAL EXAMINATION: GENERAL: Well-appearing, well-nourished and in no acute distress. HEAD: Atraumatic, normocephalic. EYES: Pupils equal round and reactive to light, extraocular movements intact, sclera anicteric, conjunctiva are normal. ENT: Nares patent, oropharynx clear without exudates. Moist mucous membranes. NECK: Normal range of motion, supple without lymphadenopathy LUNGS: Breath sounds clear to auscultation bilaterally and equal. No wheezes rales or rhonchi. HEART: Regular rate and rhythm without murmurs ABDOMEN: Soft, nontender, nondistended abdomen. No guarding, no rebound. No masses appreciated. Musculoskeletal: Normal range of motion, no pitting or edema. No cyanosis. NEUROLOGICAL: Cranial nerves grossly intact. Normal speech, normal gait. Normal sensory, motor exams PSYCH: Normal mood, normal affect. SKIN: Warm, Dry, normal turgor, no rashes or lesions noted. noted scaling of dorsal aspect of foot, no erythema noted. no drainage or induration noted approx 5izo2cm. Physical Exam - Vital signs Vitals: Temp Pulse Resp BP Pulse Ox 97.7 F 81 14 135/89 H 96 11/05/17 08:43 11/05/17 08:43 11/05/17 08:43 11/05/17 08:43 11/05/17 08:43 Course - Re-evaluation Re-evalutation: 11/05/17 11:43 This patient this is likely on his left foot,, he does need to follow-up with her primary care provider with a possible dermatology referral. Advised to use steroid ointment, apply thin layer twice a day for 1 week. Monitor for any signs and symptoms of infection such as redness, swelling, drainage. Return to the emergency room if symptoms become worse. Patient verbalized understanding of this plan of care and agree with plan of care. Patient was discharged home. - Vital Signs Vital signs: Temp Pulse Resp BP Pulse Ox 97.7 F 81 14 135/89 H 96 11/05/17 08:43 11/05/17 08:43 11/05/17 08:43 11/05/17 08:43 11/05/17 08:43 Discharge - Discharge Clinical Impression: Chronic eczema Condition: Good Disposition: HOME, SELF-CARE Instructions: Atopic Dermatitis (Eczema) ([facility]) Additional Instructions: Atopic Dematitis (Eczema) You have atopic dermatitis, commonly called eczema. This is a chronic allergic skin condition. It often occurs in families with asthma and hay fever. The skin develops patches of redness, itching and scaling. Eczema often affects the back of the neck, back of the legs, and front of the arms. In children it affects the back of the knees, front of the elbows, and the cheeks. Itching is the main symptom. Eczema can be triggered by dryness, heat, sweating, and detergents or soap. Scratching makes the rash worse. Food or skin allergy can cause eczema. Emotional stress may also be a factor. Symptoms may get better or worse spontaneously. Generally, the treatment consists of: (1) avoid hot-water baths, (2) avoid using soap on your skin, (3) apply a cortisone cream as needed, and (4) use antihistamines for itching. For severe episodes, oral cortisone medication may be required. Call the doctor if you get worse despite treatment, or if signs of infection occur -- such as spreading redness, red streaks, swollen glands, swelling, or fever. Use steroid cream thin layer on affected area twice a day. Follow-up with primary care within 1 week. Advair for any fevers or chills take over-the- counter ibuprofen and Tylenol as needed. Return to the emergency room if symptoms become worse. Return immediately for any new or worsening symptoms. Follow up with primary care provider, call tomorrow to make followup appointment. Prescriptions: Triamcinolone Acetonide 80 gm TP BID #1 tub Forms: Return to Work Referrals: ALEXIS SEPULVEDA MD [ACTIVE STAFF] - Follow up in 1 week
== END 2017-11-05 09:40 | disposition home or self-care (01) ==
LOC: ER 08:38
DX: L30.9 Dermatitis, unspecified (principal); F17.200 Nicotine dependence, unspecified, uncomplicated
CPT/HCPCS: 99283

== ENCOUNTER 2017-12-16 09:37 | Emergency (ER) | payer OTHER ==
[2017-12-16] MEDS ORDERED: ASPIRIN 81 MG TABLET, CHEWABLE PO ONE (09:41)
--- NOTE | 2017-12-16 10:43 | ER Document Report ---
ED General - General Chief Complaint: Chest Pain Stated Complaint: CHEST PAIN Time Seen by Provider: 12/16/17 10:26 Mode of Arrival: Ambulatory Information source: Patient Notes: 52-year-old male history gastric reflux presents with complaints of chest pain. Patient notes this pain is similar to his previous presentations, which were related to gastric reflux. Patient notes chest pain resolved prior to arrival, he states he always has chest pain, it is food related, Patient has had 2 stress tests both treadmill and chemical which were noted to note no acute abnormalities TRAVEL OUTSIDE OF THE [place] IN LAST 30 DAYS: No - HPI Onset: This morning Onset/Duration: Sudden Quality of pain: Burning Severity: Mild Pain Level: 1 Associated symptoms: Chest pain Exacerbated by: Food Relieved by: Denies Similar symptoms previously: Yes Recently seen / treated by doctor: Yes - Related Data Allergies/Adverse Reactions: No Known Allergies Allergy (Verified 12/16/17 09:57) Past Medical History - Social History Smoking Status: Current Every Day Smoker Cigarette use (# per day): Yes Chew tobacco use (# tins/day): No Smoking Education Provided: Yes - Patient counselled regarding cessation for 4 minutes Frequency of alcohol use: Rare Drug Abuse: None Family History: Hypertension Patient has suicidal ideation: No Patient has homicidal ideation: No - Past Medical History Cardiac Medical History: Denies: Hx Coronary Artery Disease, Hx Heart Attack, Hx Hypertension Pulmonary Medical History: Denies: Hx Asthma, Hx Bronchitis, Hx COPD, Hx Pneumonia Neurological Medical History: Denies: Hx Cerebrovascular Accident, Hx Seizures Renal/ Medical History: Denies: Hx Peritoneal Dialysis GI Medical History: Reports: Hx Gastroesophageal Reflux Disease Musculoskeltal Medical History: Denies Hx Arthritis Past Surgical History: Reports: Hx Orthopedic Surgery - Collar bone - Immunizations Hx Diphtheria, Pertussis, Tetanus Vaccination: Yes Review of Systems - Review of Systems Notes: REVIEW OF SYSTEMS: CONSTITUTIONAL : Denies fever, chills, or sweats. Denies recent illness. EENT: Denies eye, ear, throat, or mouth pain or symptoms. Denies nasal or sinus congestion or discharge. Denies throat, tongue, or mouth swelling or difficulty swallowing. CARDIOVASCULAR: Admits to chest pain RESPIRATORY: Denies cough, cold, or chest congestion. Denies shortness of breath, difficulty breathing, or wheezing. GASTROINTESTINAL: Admits to gastric reflux GENITOURINARY: Denies difficulty urinating, painful urination, burning, frequency, blood in urine, or discharge. MUSCULOSKELETAL: Denies back or neck pain or stiffness. Denies joint pain or swelling. SKIN: Denies rash, lesions or sores. HEMATOLOGIC : Denies easy bruising or bleeding. LYMPHATIC: Denies swollen, enlarged glands. NEUROLOGICAL: Denies confusion or altered mental status. Denies passing out or loss of consciousness. Denies dizziness or lightheadedness. Denies headache. Denies weakness or paralysis or loss of use of either side. Denies problems with gait or speech. Denies sensory loss, numbness, or tingling. Denies seizures. PSYCHIATRIC: Denies anxiety or stress. Denies depression, suicidal ideation, or homicidal ideation. ALL OTHER SYSTEMS REVIEWED AND NEGATIVE. Dictation was performed using [employer] voice recognition software PHYSICAL EXAMINATION: GENERAL: Well-appearing, well-nourished and in no acute distress. HEAD: Atraumatic, normocephalic. EYES: Pupils equal round and reactive to light, extraocular movements intact, sclera anicteric, conjunctiva are normal. ENT: Nares patent, oropharynx clear without exudates. Moist mucous membranes. NECK: Normal range of motion, supple without lymphadenopathy LUNGS: Breath sounds clear to auscultation bilaterally and equal. No wheezes rales or rhonchi. HEART: Regular rate and rhythm without murmurs ABDOMEN: Soft, nontender, nondistended abdomen. No guarding, no rebound. No masses appreciated. Musculoskeletal: Normal range of motion, no pitting or edema. No cyanosis. NEUROLOGICAL: Cranial nerves grossly intact. Normal speech, normal gait. Normal sensory, motor exams PSYCH: Normal mood, normal affect. SKIN: Warm, Dry, normal turgor, no rashes or lesions noted. Physical Exam - Vital signs Vitals: Pulse Ox 98 12/16/17 09:49 Course - Re-evaluation Re-evalutation: 12/16/17 13:17 Patient's presentation initially was concerning for a cardiac event however given the explanation that he is providing I have lower suspicion that this is cardiac in nature. 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 He understands that this is not a complete cardiac evaluation require admission but he prefers discharge. After performing a Medical Screening Examination, I estimate there is LOW risk for RUPTURED ESOPHAGUS, PNEUMOTHORAX, PULMONARY EMBOLISM, ACUTE CORONARY SYNDROME, OR THORACIC AORTIC DISSECTION, thus I consider the discharge disposition reasonable. I have reevaluated this patient multiple times and no significant life threatening changes are noted. The patient and I have discussed the diagnosis and risks, and we agree with discharging home with close follow-up. We also discussed returning to the Emergency Department immediately if new or worsening symptoms occur. We have discussed the symptoms which are most concerning (e.g., bloody sputum, worsening pain or shortness of breath) that necessitate immediate return. - Vital Signs Vital signs: Temp Pulse Resp BP Pulse Ox 98 F 69 20 138/92 H 99 12/16/17 14:45 12/16/17 09:50 12/16/17 14:45 12/16/17 14:45 12/16/17 14:45 - Laboratory Result Diagrams: 12/16/17 10:14 12/16/17 10:14 Laboratory results interpreted by me: 12/16/17 12/16/17 10:14 10:14 MCV 101 H MCH 35.1 H Glucose 66 L Calcium 10.3 H - Diagnostic Test Radiology reviewed: Image reviewed - No acute abnormalities noted on two-view chest x-ray, Reports reviewed - EKG Interpretation by Me EKG shows normal: Sinus rhythm, Newcomb, Intervals, QRS Complexes Discharge - Discharge Clinical Impression: Chest pain radiating to arm Condition: Stable Disposition: HOME, SELF-CARE Instructions: Chest Pain of Unclear Cause ([facility]) Prescriptions: Famotidine [Pepcid 40 mg Tablet] 40 mg PO DAILY #30 tablet Referrals: TORO PÉREZ MD [ACTIVE STAFF] - Follow up tomorrow
--- NOTE | 2017-12-16 10:48 | RADIOLOGY REPORT (SQ) ---
EXAM DESCRIPTION: CHEST SINGLE VIEW COMPLETED DATE/TIME: 12/16/2017 10:33 am REASON FOR STUDY: rme cp COMPARISON: CT 03/25/2017 chest x-ray 03/25/2017 EXAM PARAMETERS: NUMBER OF VIEWS: One view. TECHNIQUE: Single frontal radiographic view of the chest acquired. RADIATION DOSE: NA LIMITATIONS: None. FINDINGS: LUNGS AND PLEURA: No opacities, masses or pneumothorax. No pleural effusion. MEDIASTINUM AND HILAR STRUCTURES: No masses. Contour normal. HEART AND VASCULAR STRUCTURES: Heart normal in size. Normal vasculature. BONES: No acute findings. HARDWARE: None in the chest. OTHER: No other significant finding. IMPRESSION: NO ACUTE RADIOGRAPHIC FINDING IN THE CHEST. TECHNICAL DOCUMENTATION: JOB ID: [id number] [employer]- All Rights Reserved Reading location - IP/workstation name: [email or web address]
[2017-12-16 10:49] LABS: ALANINE AMINOTRANSFERASE 43 U/L (21-72); ALBUMIN 4.6 g/dL (3.5-5.0); ALKALINE PHOSPHATASE 90 U/L (38-126); ANION GAP 11 (5-19); ASPARTATE AMINO TRANSFERASE 30 U/L (17-59); BILIRUBIN,DIRECT 0.3 mg/dL (0.0-0.4); BILIRUBIN,TOTAL 0.6 mg/dL (0.2-1.3); BLOOD UREA NITROGEN 18 mg/dL (7-20); CALCIUM 10.3 mg/dL (8.4-10.2); CARBON DIOXIDE 25 mmol/L (22-30); CHLORIDE 105 mmol/L (98-107); CREATINE KINASE 100 U/L (55-170); GLUCOSE 66 mg/dL (75-110); POTASSIUM 4.7 mmol/L (3.6-5.0); SODIUM 140.7 mmol/L (137-145); TOTAL PROTEIN 7.4 g/dL (6.3-8.2)
[2017-12-16 11:03] LABS: CREATINE KINASE MB 0.69 ng/mL (<4.55)
[2017-12-16 11:04] LABS: TROPONIN I < 0.012 ng/mL
[2017-12-16 11:06] LABS: ABSOLUTE LYMPHOCYTES (AUTO) 1.2 10^3/uL (0.5-4.7); ABSOLUTE MONOCYTES (AUTO) 0.5 10^3/uL (0.1-1.4); ABSOLUTE NEUT (AUTO) 5.4 10^3/uL (1.7-8.2); BASOPHILS % (AUTO) 0.2 % (0-2); EOSINOPHILS % (AUTO) 0.6 % (0-6); HEMATOCRIT 44.9 % (37.9-51.0); HEMOGLOBIN 15.6 g/dL (13.5-17.0); LYMPHOCYTES % (AUTO) 16.4 % (13-45); MEAN CORPUSCULAR HEMOGLOBIN 35.1 pg (27.0-33.4); MEAN CORPUSCULAR HGB CONC 34.7 g/dL (32.0-36.0); MEAN CORPUSCULAR VOLUME 101 fl (80-97); MONOCYTES % (AUTO) 7.4 % (3-13); PLATELET COUNT 236 10^3/uL (150-450); RED BLOOD COUNT 4.45 10^6/uL (4.35-5.55); RED CELL DISTRIBUTION WIDTH 13.1 % (11.5-14.0); SEGMENTED NEUTROPHILS % (AUTO) 75.4 % (42-78); TOTAL CELLS COUNTED % (AUTO) 100 %; WHITE BLOOD COUNT 7.1 10^3/uL (4.0-10.5)
--- NOTE | 2017-12-16 13:14 | EKG REPORT ---
SEVERITY:- NORMAL ECG - SINUS RHYTHM : Confirmed by: Nay Nieves 16-Dec-2017 13:13:17
[2017-12-16 15:16] VITALS: BP 138/92
== END 2017-12-16 14:45 | disposition home or self-care (01) ==
LOC: ER 09:37
DX: R07.9 Chest pain, unspecified (principal); M79.603 Pain in arm, unspecified; K21.9 Gastro-esophageal reflux disease without esophagitis; F17.210 Nicotine dependence, cigarettes, uncomplicated
CPT/HCPCS: 36415; 71045; 80053; 82550; 82553; 84484; 85025; 93005; 93010; 99285; 99406

== ENCOUNTER 2019-01-05 08:47 | Observation (INO) | payer OTHER ==
[2019-01-05] MEDS ORDERED: ASPIRIN 325 MG TABLET PO ONE (09:38)
[2019-01-05] MEDS ORDERED: METOCLOPRAMIDE HCL ORAL SOLN 10 MG/10 ML UDCUP PO ONE (09:44)
[2019-01-05] MEDS ORDERED: LIDOCAINE 2% VISCOUS SOLN 20 ML UDCUP PO ONE (09:44)
[2019-01-05] MEDS ORDERED: MAG HYDROX/AL HYDROX/SIMETH SUSP 30 ML UDCUP PO ONE (09:44)
--- NOTE | 2019-01-05 09:44 | ER Document Report ---
ED Cardiac - General Chief Complaint: Chest Pain Stated Complaint: CHEST PAIN Time Seen by Provider: 01/05/19 09:33 Information source: Patient Notes: 53-year-old male who presents today with the onset around 7 AM of some nonradiating left-sided chest discomfort. 6 out of 10 maximum. Nausea without vomiting or shortness of breath. No calf pain, leg swelling, recent trips or travel. He states it is intermittent with no aggravating or relieving factors. Patient was admitted here in 2016 for cardiac rule out. He was also seen here in November 2017 with an unremarkable chest evaluation believed to be most likely secondary to reflux. Patient does smoke. No family history that he knows have a Felix heart attacks or strokes. Patient supposedly has had 2 stress tests in the last 4 years. The last when he believes was in 2016. He has never had a cardiac catheterization. TRAVEL OUTSIDE OF THE [place] IN LAST 30 DAYS: No - Related Data Allergies/Adverse Reactions: No Known Allergies Allergy (Verified 12/16/17 09:57) Past Medical History - Social History Smoking Status: Current Every Day Smoker Family History: Hypertension - Past Medical History Cardiac Medical History: Denies: Hx Coronary Artery Disease, Hx Heart Attack, Hx Hypertension Pulmonary Medical History: Denies: Hx Asthma, Hx Bronchitis, Hx COPD, Hx Pneumonia Neurological Medical History: Denies: Hx Cerebrovascular Accident, Hx Seizures Renal/ Medical History: Denies: Hx Peritoneal Dialysis GI Medical History: Reports: Hx Gastroesophageal Reflux Disease Musculoskeletal Medical History: Denies Hx Arthritis Past Surgical History: Reports: Hx Orthopedic Surgery - Collar bone - Immunizations Hx Diphtheria, Pertussis, Tetanus Vaccination: Yes Review of Systems - Review of Systems Constitutional: denies: Fever EENT: denies: Eye discharge, Nose discharge Cardiovascular: denies: Palpitations Respiratory: denies: Short of breath Gastrointestinal: denies: Vomiting Genitourinary: denies: Dysuria Musculoskeletal: denies: Leg swelling Skin: Other - no hives. denies: Rash Neurological/Psychological: Other - no slurred speech -: Yes All other systems reviewed and negative Physical Exam - Vital signs Vitals: Temp Pulse Resp BP Pulse Ox 97.9 F 70 16 161/100 H 94 01/05/19 08:58 01/05/19 08:58 01/05/19 08:58 01/05/19 08:58 01/05/19 08:58 Notes: Reviewed vital signs and nursing note as charted by RN. CONSTITUTIONAL: Alert and oriented and responds appropriately to questions. Well-appearing; well-nourished HEAD: Normocephalic; atraumatic NECK: Supple without meningismus; non-tender; no cervical lymphadenopathy, no masses CARD: Regular rate and rhythm; no murmurs; symmetric distal pulses RESP: Normal chest excursion without splinting or tachypnea; breath sounds clear and equal bilaterally; no wheezes, no rhonchi, no rales ABD/GI: Normal bowel sounds; non-distended; soft, non-tender BACK: The back appears normal and is non-tender to palpation EXT: Normal ROM in all joints; non-tender to palpation; no edema SKIN: No acute lesions noted NEURO: CN 2-12 intact; 5/5 bilateral upper and lower extremity strength with sen sation intact to light touch PSYCH: The patient's mood and manner are appropriate. Grooming and personal hygiene are appropriate. Course - Re-evaluation Re-evalutation: 01/05/19 09:43 Given the history and physical examination, not tachycardic or hypoxic, no calf pain or leg swelling, maximum 6 out of 10 pain, no radiation to the back, I do believe pulmonary embolism and aortic dissection to be unlikely. Patient does have a strong history of reflux in the past. Two recent stress test in the last 4 years. No cardiac catheterizations. EKG showed heart rate of 75, normal sinus rhythm, normal axis, no ST elevation or depression. 01/05/19 11:15 Patient's pain is much improved. Initial troponin as recorded. Chest x-ray shows normal heart, normal mediastinum, no fractures, normal lung haas, no pneumothorax. - Vital Signs Vital signs: Temp Pulse Resp BP Pulse Ox 97.9 F 70 22 H 141/87 H 92 01/05/19 08:58 01/05/19 08:58 01/05/19 10:18 01/05/19 10:18 01/05/19 10:18 - Laboratory Result Diagrams: 01/05/19 09:46 01/05/19 09:46 Laboratory results interpreted by me: 01/05/19 09:46 RBC 4.22 L MCV 103 H MCH 35.1 H Discharge - Discharge Clinical Impression: Chest pain Qualifiers: Chest pain type: precordial pain Qualified Code(s): R07.2 - Precordial pain Condition: Fair Disposition: ADMITTED OBSERVATION Admitting Provider: Ely (Hospitalist) Unit Admitted: Telemetry
[2019-01-05 09:54] LABS: ABSOLUTE EOSINOPHILS # (AUTO) 0.1 10^3/uL (0.0-0.6); ABSOLUTE LYMPHOCYTES (AUTO) 1.1 10^3/uL (0.5-4.7); ABSOLUTE MONOCYTES (AUTO) 0.5 10^3/uL (0.1-1.4); ABSOLUTE NEUT (AUTO) 4.4 10^3/uL (1.7-8.2); BASOPHILS % (AUTO) 0.3 % (0-2); EOSINOPHILS % (AUTO) 0.9 % (0-6); HEMATOCRIT 43.4 % (37.9-51.0); HEMOGLOBIN 14.8 g/dL (13.5-17.0); LYMPHOCYTES % (AUTO) 18.6 % (13-45); MEAN CORPUSCULAR HEMOGLOBIN 35.1 pg (27.0-33.4); MEAN CORPUSCULAR HGB CONC 34.1 g/dL (32.0-36.0); MEAN CORPUSCULAR VOLUME 103 fl (80-97); MONOCYTES % (AUTO) 7.6 % (3-13); PLATELET COUNT 229 10^3/uL (150-450); RED BLOOD COUNT 4.22 10^6/uL (4.35-5.55); RED CELL DISTRIBUTION WIDTH 13.2 % (11.5-14.0); SEGMENTED NEUTROPHILS % (AUTO) 72.6 % (42-78); TOTAL CELLS COUNTED % (AUTO) 100 %; WHITE BLOOD COUNT 6.1 10^3/uL (4.0-10.5)
[2019-01-05] MEDS: NITROGLYCERIN 0.4 MG/TAB 25 TAB/BOTTLE SL PRN ×2 (10:02→10:11)
--- NOTE | 2019-01-05 10:08 | RADIOLOGY REPORT (SQ) ---
EXAM DESCRIPTION: CHEST 2 VIEWS COMPLETED DATE/TIME: 01/05/2019 9:55 am REASON FOR STUDY: 2, cp COMPARISON: 10/01/2015. EXAM PARAMETERS: NUMBER OF VIEWS: two views TECHNIQUE: Digital Frontal and Lateral radiographic views of the chest acquired. RADIATION DOSE: NA LIMITATIONS: none FINDINGS: LUNGS AND PLEURA: Mild atelectasis/ scarring in the lung bases. No focal infiltrates, mas ses or pneumothorax. No pleural effusion. MEDIASTINUM AND HILAR STRUCTURES: No masses or contour abnormalities. HEART AND VASCULAR STRUCTURES: Heart normal size. No evidence for failure. BONES: No acute findings. HARDWARE: None in the chest. OTHER: No other significant finding. IMPRESSION: NO ACUTE RADIOGRAPHIC FINDING IN THE CHEST. TECHNICAL DOCUMENTATION: JOB ID: [id number] [employer]- All Rights Reserved Reading location - IP/workstation name: [email or web address]
[2019-01-05 10:41] LABS: ANION GAP 10 (5-19); BLOOD UREA NITROGEN 12 mg/dL (7-20); CALCIUM 9.4 mg/dL (8.4-10.2); CARBON DIOXIDE 25 mmol/L (22-30); CHLORIDE 107 mmol/L (98-107); GLUCOSE 89 mg/dL (75-110); POTASSIUM 4.8 mmol/L (3.6-5.0); SODIUM 141.7 mmol/L (137-145)
[2019-01-05] MEDS ORDERED: NITROGLYCERIN 2% OINTMENT 1 GM PACKET TP ONE (10:45)
[2019-01-05] MEDS ORDERED: ACETAMINOPHEN 325 MG TABLET PO PRN (11:55)
[2019-01-05] MEDS ORDERED: ONDANSETRON HCL INJ/PF 4 MG/2 ML SDV IV PRN (11:55)
[2019-01-05] MEDS ORDERED: HYDRALAZINE HCL INJ/PF 20 MG/1 ML SDV IV PRN (12:00)
[2019-01-05] MEDS ORDERED: MORPHINE SULFATE 10 MG/ML INJ IV PRN (12:00)
[2019-01-05] MEDS ORDERED: LORAZEPAM 1 MG TABLET PO PRN (12:03)
--- NOTE | 2019-01-05 12:11 | PDOC H&P ---
History of Present Illness Admission Date/PCP: 01/05/19 11:48 Patient complains of: Chest pain History of Present Illness: REINA HODGE is a 53 year old male with history of hypertension noncompliant with medications, chronic smoker daily alcohol user came to the emergency room complaining of left-sided chest pain this morning. He was at work standing at t he workplace all of a sudden developed left-sided chest pain decided to came to the emergency room for further evaluation. According to the patient pain was 6 x 10 associated with left arm pain and nausea denies any vomiting denies any sweating denies any dizziness denies any lightheadedness he admitted that he has this kind of pain before in 2017 stress test at that time was negative. He is describing the pain as a stabbing pain. At the time of my examination he is chest chest pain-free. Cardiac enzymes came back negative EKG shows sinus rhythm. Patient agreed to stay for stress test tomorrow. Past Medical History Cardiac Medical History: Denies: Coronary Artery Disease, Myocardial Infarction, Hypertension Pulmonary Medical History: Denies: Asthma, Bronchitis, Chronic Obstructive Pulmonary Disease (COPD), Pneumonia Neurological Medical History: Denies: Seizures GI Medical History: Reports: Gastroesophageal Reflux Disease Musculoskeltal Medical History: Denies: Arthritis Hematology: Denies: Anemia Past Surgical History Past Surgical History: Reports: Orthopedic Surgery - Collar bone Social History Information Source: Patient Smoking Status: Current Every Day Smoker Frequency of Alcohol Use: Heavy Hx Recreational Drug Use: No Drugs: None Hx Prescription Drug Abuse: No - Advance Directive Resuscitation Status: Full Code Family History Family History: Hypertension Parental Family History Reviewed: Yes - Hypertension Children Family History Reviewed: Yes Sibling(s) Family History Reviewed.: Yes Medication/Allergy Home Medications: Triamcinolone Acetonide 80 gm TP BID #1 tub 11/05/17 Famotidine [Pepcid 40 mg Tablet] 40 mg PO DAILY #30 tablet 12/16/17 Allergies/Adverse Reactions: No Known Allergies Allergy (Verified 12/16/17 09:57) Review of Systems Constitutional: ABSENT: fever(s), headache(s), night sweats, weakness Eyes: ABSENT: visual disturbances Ears: ABSENT: hearing changes Cardiovascular: PRESENT: chest pain. ABSENT: edema, palpitations Respiratory: ABSENT: dyspnea, hemoptysis Gastrointestinal: PRESENT: abdominal pain, bloating, coffee ground emesis, heartburn, nausea, vomiting Genitourinary: ABSENT: dysuria, hematuria Musculoskeletal: ABSENT: joint swelling Neurological: ABSENT: abnormal gait, abnormal speech, confusion, dizziness, focal weakness, syncope Psychiatric: ABSENT: anxiety, depression, homidical ideation, suicidal ideation Physical Exam Vital Signs: Temp Pulse Resp BP Pulse Ox 97.9 F 70 21 H 134/102 H 94 01/05/19 08:58 01/05/19 08:58 01/05/19 11:20 01/05/19 11:20 01/05/19 11:20 Intake & Output 01/04/19 01/05/19 01/06/19 06:59 06:59 06:59 Weight 81.647 kg General appearance: PRESENT: no acute distress, well-developed Head exam: PRESENT: atraumatic Eye exam: PRESENT: PERRLA Mouth exam: PRESENT: moist, tongue midline Neck exam: ABSENT: carotid bruit, JVD, lymphadenopathy, thyromegaly Respiratory exam: PRESENT: clear to auscultation ame. ABSENT: rales, rhonchi, wheezes Cardiovascular exam: PRESENT: RRR. ABSENT: diastolic murmur, rubs, systolic murmur GI/Abdominal exam: PRESENT: normal bowel sounds, soft. ABSENT: distended, guarding, mass, organolmegaly, rebound, tenderness Rectal exam: PRESENT: deferred Neurological exam: PRESENT: alert, awake, oriented to person, oriented to place, oriented to time, oriented to situation, CN II-XII grossly intact. ABSENT: motor sensory deficit Psychiatric exam: PRESENT: appropriate affect, normal mood. ABSENT: homicidal ideation, suicidal ideation Results Laboratory Results: 01/05/19 09:46 01/05/19 09:46 01/05/19 01/05/19 09:46 09:46 WBC 6.1 RBC 4.22 L Hgb 14.8 Hct 43.4 MCV 103 H MCH 35.1 H MCHC 34.1 RDW 13.2 Plt Count 229 Seg Neutrophils % 72.6 Lymphocytes % 18.6 Monocytes % 7.6 Eosinophils % 0.9 Basophils % 0.3 Absolute Neutrophils 4.4 Absolute Lymphocytes 1.1 Absolute Monocytes 0.5 Absolute Eosinophils 0.1 Absolute Basophils 0.0 Sodium 141.7 Potassium 4.8 Chloride 107 Carbon Dioxide 25 Anion Gap 10 BUN 12 Creatinine 0.86 Est GFR ( Amer) > 60 Est GFR (Non-Af Amer) > 60 Glucose 89 Calcium 9.4 01/05/19 09:46 Troponin I < 0.012 Impressions: Chest X-Ray 01/05/19 09:38 IMPRESSION: NO ACUTE RADIOGRAPHIC FINDING IN THE CHEST. Assessment and Plan - Diagnosis (1) Chest pain Qualifiers: Chest pain type: precordial pain Qualified Code(s): R07.2 - Precordial pain Is this a current diagnosis for this admission?: Yes Plan: 01/05/2019-patient admitted for chest pain under observation. Stress test is destiny nned for tomorrow. Serial CPK troponins and EKGs are requested. Start on oxygen 2 L nasal cannula. On morphine 1 mg IV every 4 PRN for chest pain. Lipid panel was requested for tomorrow morning. Start on aspirin 325 mg daily and atorvastatin 10 mg p.o. nightly. (2) Tobacco abuse Is this a current diagnosis for this admission?: No Plan: 01/05/2019-patient is a chronic smoker with smoking history of more than 30 years. Smokes close to 1 pack/day. Smoking counseling was provided for more than 10 minutes and strongly advised him to quit smoking. (3) HTN (hypertension) Is this a current diagnosis for this admission?: No Plan: 01/05/2019-patient blood pressure is 134/102. Patient has history of hypertension but noncompliant with medications. He is not on any medications. To start him on lisinopril 10 mg p.o. daily and started on hydralazine 10 mg IV every 6 as needed for systolic blood pressure more than 150. (4) Alcohol abuse Is this a current diagnosis for this admission?: No Plan: 01/05/2019-patient given history of alcohol use on daily basis. Meetings 3-4 small glasses of forearm. Patient was strongly advised to cut down the alcohol intake. To watch for the DTs in the hospital. (5) GERD (gastroesophageal reflux disease) Qualifiers: Esophagitis presence: esophagitis presence not specified Qualified Code(s): K21.9 - Gastro-esophageal reflux disease without esophagitis Is this a current diagnosis for this admission?: No Plan: 01/05/2019-patient is given the history of gastric further reflux disease not on any medications at home. To start him on famotidine 20 mg p.o. twice daily. - Time Time Spent with patient: 15-24 minutes Smoking Cessation Education: over 10 minutes Medications reviewed and adjusted accordingly: Yes Anticipated discharge: Home
[2019-01-05 12:12] LABS: INTERNATIONAL RATION (INR) 0.96; PROTHROMBIN TIME 13.2 SEC (11.4-15.4)
[2019-01-05] MEDS: LISINOPRIL 10 MG TABLET PO SCH (12:17)
[2019-01-05] MEDS: NICOTINE 21 MG/24 HR PATCH.TD24 TD SCH (12:19)
[2019-01-05 16:08] LABS: URINE AMPHETAMINES SCREEN NEGATIVE; URINE BARBITURATES SCREEN NEGATIVE; URINE BENZODIAZEPINES SCREEN NEGATIVE; URINE COCAINE SCREEN NEGATIVE; URINE MARIJUANA (THC) SCREEN NEGATIVE; URINE METHADONE SCREEN NEGATIVE; URINE PHENCYCLIDINE SCREEN NEGATIVE
[2019-01-05 16:22] LABS: CREATINE KINASE MB 0.38 ng/mL (<4.55)
[2019-01-05 16:28] LABS: TROPONIN I < 0.012 ng/mL
[2019-01-05] MEDS: DOCUSATE SODIUM 100 MG/10 ML UDC PO SCH (16:59)
[2019-01-05] MEDS: TRIAMCINOLONE ACETONIDE 0.1% OINT 15 GM TP SCH (18:36)
[2019-01-05] MEDS: FAMOTIDINE 20 MG TABLET PO SCH (21:24)
[2019-01-05] MEDS: ATORVASTATIN CALCIUM 10 MG TABLET PO SCH (21:24)
[2019-01-05 22:37] LABS: CREATINE KINASE MB 0.27 ng/mL (<4.55)
[2019-01-05 22:38] LABS: TROPONIN I < 0.012 ng/mL
[2019-01-06 03:58] LABS: ABSOLUTE EOSINOPHILS # (AUTO) 0.1 10^3/uL (0.0-0.6); ABSOLUTE LYMPHOCYTES (AUTO) 1.7 10^3/uL (0.5-4.7); ABSOLUTE MONOCYTES (AUTO) 0.6 10^3/uL (0.1-1.4); ABSOLUTE NEUT (AUTO) 4.3 10^3/uL (1.7-8.2); BASOPHILS % (AUTO) 0.3 % (0-2); EOSINOPHILS % (AUTO) 1.8 % (0-6); HEMATOCRIT 40.8 % (37.9-51.0); HEMOGLOBIN 14.1 g/dL (13.5-17.0); LYMPHOCYTES % (AUTO) 24.9 % (13-45); MEAN CORPUSCULAR HEMOGLOBIN 34.9 pg (27.0-33.4); MEAN CORPUSCULAR HGB CONC 34.4 g/dL (32.0-36.0); MEAN CORPUSCULAR VOLUME 101 fl (80-97); MONOCYTES % (AUTO) 9.4 % (3-13); PLATELET COUNT 190 10^3/uL (150-450); RED BLOOD COUNT 4.03 10^6/uL (4.35-5.55); SEGMENTED NEUTROPHILS % (AUTO) 63.6 % (42-78); TOTAL CELLS COUNTED % (AUTO) 100 %; WHITE BLOOD COUNT 6.8 10^3/uL (4.0-10.5)
[2019-01-06 04:26] LABS: ALANINE AMINOTRANSFERASE 30 U/L (21-72); ALBUMIN 3.3 g/dL (3.5-5.0); ALKALINE PHOSPHATASE 76 U/L (38-126); ANION GAP 8 (5-19); ASPARTATE AMINO TRANSFERASE 23 U/L (17-59); BILIRUBIN,DIRECT 0.2 mg/dL (0.0-0.4); BILIRUBIN,TOTAL 0.8 mg/dL (0.2-1.3); BLOOD UREA NITROGEN 19 mg/dL (7-20); CALCIUM 9.1 mg/dL (8.4-10.2); CARBON DIOXIDE 25 mmol/L (22-30); CHLORIDE 105 mmol/L (98-107); CHOLESTEROL 170.88 mg/dL (0-200); CREATINE KINASE 45 U/L (55-170); GLUCOSE 88 mg/dL (75-110); POTASSIUM 4.4 mmol/L (3.6-5.0); TOTAL PROTEIN 5.7 g/dL (6.3-8.2); TRIGLYCERIDES 119 mg/dL (<150)
[2019-01-06 04:37] LABS: DIRECT LDL 97 mg/dL (<100)
[2019-01-06 04:38] LABS: CREATINE KINASE MB 0.28 ng/mL (<4.55)
[2019-01-06 04:44] LABS: TROPONIN I < 0.012 ng/mL
[2019-01-06] MEDS ORDERED: ENOXAPARIN SODIUM INJ 40 MG/0.4 ML DISP.SYRIN SUBCUT SCH (10:00)
[2019-01-06] MEDS: LISINOPRIL 10 MG TABLET PO SCH (10:11)
[2019-01-06] MEDS: ASPIRIN 325 MG TABLET PO SCH (10:11)
[2019-01-06] MEDS: DOCUSATE SODIUM 100 MG/10 ML UDC PO SCH ×2 (10:12→17:14)
[2019-01-06] MEDS: TRIAMCINOLONE ACETONIDE 0.1% OINT 15 GM TP SCH ×2 (10:14→17:14)
[2019-01-06] MEDS: FAMOTIDINE 20 MG TABLET PO SCH ×2 (10:18→21:09)
[2019-01-06] MEDS: NICOTINE 21 MG/24 HR PATCH.TD24 TD SCH (18:17)
--- NOTE | 2019-01-06 19:21 | PDOC PROGRESS REPORT ---
Subjective Progress Note for:: 01/06/19 Subjective:: This is a 53 year old male with history of hypertension noncompliant with medications, chronic smoker daily alcohol user who presented with left-sided chest pain. He was admitted to rule out ACS and was scheduled for stress testing. This morning, he was supposed to be taken down for stress test but apparnetly he had chest pain hence his stress test was deferred. On encounter, he said he only had mild chest discomfort this morning (08/23 from 12/21 yesterday). He says its tightness. Reason For Visit: CHEST PAIN Physical Exam Vital Signs: Temp Pulse Resp BP Pulse Ox 98.5 F 69 17 143/87 H 96 01/06/19 16:00 01/06/19 16:00 01/06/19 16:00 01/06/19 16:00 01/06/19 16:00 Intake & Output 01/05/19 01/06/19 01/07/19 06:59 06:59 06:59 Intake Total 780 800 Balance 780 800 Weight 179 lb 14.355 oz General appearance: PRESENT: no acute distress, well-developed, well-nourished Head exam: PRESENT: atraumatic, normocephalic Eye exam: PRESENT: conjunctiva pink, EOMI, PERRLA. ABSENT: scleral icterus Ear exam: PRESENT: normal external ear exam Mouth exam: PRESENT: moist, tongue midline Neck exam: ABSENT: carotid bruit, JVD, lymphadenopathy, thyromegaly Respiratory exam: PRESENT: clear to auscultation ame. ABSENT: rales, rhonchi, wheezes Cardiovascular exam: PRESENT: RRR. ABSENT: diastolic murmur, rubs, systolic murmur Pulses: PRESENT: normal dorsalis pedis pul GI/Abdominal exam: PRESENT: normal bowel sounds, soft. ABSENT: distended, guarding, mass, organolmegaly, rebound, tenderness Rectal exam: PRESENT: deferred Neurological exam: PRESENT: alert, awake, oriented to person, oriented to place, oriented to time, oriented to situation, CN II-XII grossly intact. ABSENT: motor sensory deficit Results Laboratory Results: 01/06/19 03:35 01/06/19 03:35 01/06/19 01/06/19 01/06/19 03:35 03:35 03:35 WBC 6.8 RBC 4.03 L Hgb 14.1 Hct 40.8 MCV 101 H MCH 34.9 H MCHC 34.4 RDW 13.0 Plt Count 190 Seg Neutrophils % 63.6 Lymphocytes % 24.9 Monocytes % 9.4 Eosinophils % 1.8 Basophils % 0.3 Absolute Neutrophils 4.3 Absolute Lymphocytes 1.7 Absolute Monocytes 0.6 Absolute Eosinophils 0.1 Absolute Basophils 0.0 Sodium 138.0 Potassium 4.4 Chloride 105 Carbon Dioxide 25 Anion Gap 8 BUN 19 Creatinine 0.98 Est GFR ( Amer) > 60 Est GFR (Non-Af Amer) > 60 Glucose 88 Calcium 9.1 Magnesium 2.1 Total Bilirubin 0.8 AST 23 ALT 30 Alkaline Phosphatase 76 Total Protein 5.7 L Albumin 3.3 L Triglycerides 119 Cholesterol 170.88 LDL Cholesterol Direct 97 VLDL Cholesterol 24.0 HDL Cholesterol 62 TSH 3.75 01/05/19 01/05/19 01/05/19 09:46 15:45 21:20 Creatine Kinase CK-MB (CK-2) 0.38 0.27 Troponin I < 0.012 < 0.012 < 0.012 01/06/19 01/06/19 03:35 03:35 Creatine Kinase 45 L CK-MB (CK-2) 0.28 Troponin I < 0.012 Impressions: Chest X-Ray 01/05/19 09:38 IMPRESSION: NO ACUTE RADIOGRAPHIC FINDING IN THE CHEST. Assessment and Plan - Diagnosis (1) Chest pain Qualifiers: Chest pain type: precordial pain Qualified Code(s): R07.2 - Precordial pain Is this a current diagnosis for this admission?: Yes Plan: EKGs and troponins have been negative x 3. Anticipating to proceed with stress testing tomorrow morning. (2) HTN (hypertension) Is this a current diagnosis for this admission?: Yes Plan: Add amlodipine. (3) GERD (gastroesophageal reflux disease) Qualifiers: Esophagitis presence: esophagitis presence not specified Qualified Code(s): K21.9 - Gastro-esophageal reflux disease without esophagitis Is this a current diagnosis for this admission?: Yes Plan: Add Protonix. - Time Time Spent with patient: 15-24 minutes
[2019-01-06] MEDS: ATORVASTATIN CALCIUM 10 MG TABLET PO SCH (21:10)
[2019-01-06] MEDS: AMLODIPINE BESYLATE 5 MG TABLET PO SCH (21:10)
[2019-01-07] MEDS ORDERED: PANTOPRAZOLE SODIUM 40 MG VIAL IV SCH (07:00)
[2019-01-07] MEDS ORDERED: ONDANSETRON HCL INJ/PF 4 MG/2 ML SDV IV PRN (10:30)
[2019-01-07] MEDS: TRIAMCINOLONE ACETONIDE 0.1% OINT 15 GM TP SCH (11:03)
[2019-01-07] MEDS: FAMOTIDINE 20 MG TABLET PO SCH (11:11)
[2019-01-07] MEDS: ASPIRIN 325 MG TABLET PO SCH (11:11)
[2019-01-07] MEDS: AMLODIPINE BESYLATE 5 MG TABLET PO SCH (11:11)
[2019-01-07] MEDS: LISINOPRIL 10 MG TABLET PO SCH (11:12)
--- NOTE | 2019-01-07 11:25 | EKG REPORT ---
SEVERITY:- NORMAL ECG - SINUS RHYTHM : Confirmed by: Nay Nieves 07-Jan-2019 11:24:53
--- NOTE | 2019-01-07 11:25 | EKG REPORT ---
SEVERITY:- ABNORMAL ECG - SINUS RHYTHM : Confirmed by: Nay Nieves 07-Jan-2019 11:24:47
[2019-01-07] MEDS ORDERED: REGADENOSON INJ 0.4 MG/5 ML DISP.SYRIN IV ONE (12:24)
[2019-01-07 17:48] VITALS: BP 130/88
[2019-01-07] MEDS ORDERED: DOCUSATE SODIUM 100 MG CAPSULE PO SCH (18:00)
--- NOTE | 2019-01-07 22:16 | DRAGON STRESS TEST REPORT ---
Intravenous Lexiscan Cardiolite stress test using single photon emmision computerized tomography. Date of procedure: 01/07/2019. Ordering Provider: Dr. Pascual purcell. Patient's status: In Patient. Indication: Chest pain. Coronary risk factors: Age, and history of tobacco abuse disorder. Resting EKG: Sinus Rhythm. Within Normal Limits. Stress EKG: No changes of ischemia. The patient had no chest pain or discomfort, and there were no arrhythmias seen. Reason for termination: Protocol. Conclusions: Normal EKG and hemodynamic response to IV Lexiscan. Nuclear data: At rest the patient was given 12.78 millicuries of technetium 99m sestamibi injected intravenously. As per protocol rest non gated SPECT images were obtained. Subsequently the patient was given intravenous Lexiscan at a dose of 0.4 mg in 5 mL intravenously, followed by flush with normal saline. Subsequently the stress dose of 35.8 millicuries of technetium 99m sestamibi was injected intravenously. As per protocol stress gated images were obtained. Nuclear interpretation: Review of images showed that all segments of the myocardium had normal perfusion at rest, and normal perfusion post stress with IV Lexiscan. All segments of the myocardium had normal motion, contraction, and thickening by gated study. T. I D. ratio was normal at 1.08. There is no transient ischemic dilatation of the left ventricle. Computer read rest, and stress left ventricular ejection fraction were 61 %, and 58 %, respectively. Conclusion: 1. There is no scintigraphic evidence of Lexiscan induced myocardial ischemia. 2. There is no scintigraphic evidence of myocardial infarction/scar. Recommendations: Aggressive risk factor modification, and treating the underlying co- morbidities. MTDD
--- NOTE | 2019-01-08 19:00 | PDOC DISCHARGE SUMMARY ---
General - Admit/Disc Date/PCP Admission Date/Primary Care Provider: 01/05/19 11:48 Discharge Date: 01/07/19 - Discharge Diagnosis (1) Chest pain Is this a current diagnosis for this admission?: Yes (2) HTN (hypertension) Is this a current diagnosis for this admission?: Yes (3) GERD (gastroesophageal reflux disease) Is this a current diagnosis for this admission?: Yes - Additional Information Resuscitation Status: Full Code Discharge Diet: Regular Discharge Activity: Activity As Tolerated Prescriptions: Amlodipine Besylate [Norvasc 10 mg Tablet] 10 mg PO DAILY #30 tablet Lisinopril [Zestril] 20 mg PO DAILY #30 tablet Omeprazole 20 mg PO QAM #30 tablet. Home Medications: Fexofenadine HCl [Lizy] 180 mg PO DAILYP PRN 01/05/19 Amlodipine Besylate [Norvasc 10 mg Tablet] 10 mg PO DAILY #30 tablet 01/07/19 Lisinopril [Zestril] 20 mg PO DAILY #30 tablet 01/07/19 Omeprazole 20 mg PO QAM #30 tablet. 01/07/19 History of Present Illness History of Present Illness: Admitting hospitalist's H&P: REINA HODGE is a 53 year old male with history of hypertension noncompliant with medications, chronic smoker daily alcohol user came to the emergency room complaining of left-sided chest pain this morning. He was at work standing at the workplace all of a sudden developed left-sided chest pain decided to came to the emergency room for further evaluation. According to the patient pain was 6 x 10 associated with left arm pain and nausea denies any vomiting denies any sweating denies any dizziness denies any lightheadedness he admitted that he has this kind of pain before in 2017 stress test at that time was negative. He is describing the pain as a stabbing pain. At the time of my examination he is chest chest pain-free. Hospital Course Hospital Course: This is a 53 year old male with history of hypertension noncompliant with medications, chronic smoker daily alcohol user who presented with left-sided chest pain. He was admitted to rule out ACS. Troponins and EKGs were unremarkable. He underwent stress testing which came back normal. He was also started on amlodipine treat his blood pressure spikes. He did say he had relief from the amlodipine. Considering possible esophageal spasm versus GERD. Patient also be sent home on Protonix and will closely follow with PCP. Physical Exam Vital Signs: Temp Pulse Resp BP Pulse Ox 98.1 F 75 18 130/88 H 95 01/07/19 17:47 01/07/19 17:47 01/07/19 17:47 01/07/19 17:47 01/07/19 17:47 Intake & Output 01/07/19 01/08/19 01/09/19 06:59 06:59 06:59 Intake Total 1280 237 Balance 1280 237 Weight 179 lb 14.355 oz General appearance: PRESENT: no acute distress, well-developed, well-nourished Head exam: PRESENT: atraumatic, normocephalic Eye exam: PRESENT: conjunctiva pink, EOMI, PERRLA. ABSENT: scleral icterus Ear exam: PRESENT: normal external ear exam Mouth exam: PRESENT: moist, tongue midline Neck exam: ABSENT: carotid bruit, JVD, lymphadenopathy, thyromegaly Respiratory exam: PRESENT: clear to auscultation mae. ABSENT: rales, rhonchi, wheezes Cardiovascular exam: PRESENT: RRR. ABSENT: diastolic murmur, rubs, systolic murmur Pulses: PRESENT: normal dorsalis pedis pul GI/Abdominal exam: PRESENT: normal bowel sounds, soft. ABSENT: distended, gua rding, mass, organolmegaly, rebound, tenderness Rectal exam: PRESENT: deferred Extremities exam: PRESENT: full ROM. ABSENT: calf tenderness, clubbing, pedal edema Neurological exam: PRESENT: alert, awake, oriented to person, oriented to place, oriented to time, oriented to situation, CN II-XII grossly intact. ABSENT: motor sensory deficit Results Laboratory Results: 01/06/19 03:35 01/06/19 03:35 01/05/19 01/05/19 01/05/19 09:46 15:45 21:20 Creatine Kinase CK-MB (CK-2) 0.38 0.27 Troponin I < 0.012 < 0.012 < 0.012 01/06/19 01/06/19 03:35 03:35 Creatine Kinase 45 L CK-MB (CK-2) 0.28 Troponin I < 0.012 Impressions: Chest X-Ray 01/05/19 09:38 IMPRESSION: NO ACUTE RADIOGRAPHIC FINDING IN THE CHEST. Qualifiers - * PATIENT BEING DISCHARGED WITH ANY OF THE FOLLOWING DIAGNOSIS: No Acute Heart Failure Is this a Heart Failure Patient?: No
== END 2019-01-07 19:04 | disposition home or self-care (01) ==
LOC: ER 08:47 → INTOOBSV 11:48 → EH 11:48 → 5 16:02
PROVIDERS: ADMIT Internal Medicine; ATTEND Internal Medicine
PROC: HZ31ZZZ Individual Counseling for Substance Abuse Treatment, Behavioral (ICD-10-PCS; principal; 2019-01-05)
DX: R07.2 Precordial pain (principal); I10 Essential (primary) hypertension; K21.9 Gastro-esophageal reflux disease without esophagitis; M79.602 Pain in left arm; R11.2 Nausea with vomiting, unspecified; R10.9 Unspecified abdominal pain; R14.0 Abdominal distension (gaseous); F10.10 Alcohol abuse, uncomplicated; F17.210 Nicotine dependence, cigarettes, uncomplicated; Z79.899 Other long term (current) drug therapy; Z82.49 Family history of ischemic heart disease and other diseases of the circulatory system
CPT/HCPCS: 93005; 99285; 36415 ×2; 82553 ×2; 82550; 83735; 84443; 85025 ×2; 85610; 80048; 80053; 84484 ×2; 80307; 83036; 80061; 93017; 71046; 78452; 93010; 99407; A9500; J2785; J3490 ×3; J2270; J1650; S0164; Q9969; G0378

== ENCOUNTER 2019-01-09 07:17 | Emergency (ER) | payer OTHER ==
[2019-01-09] MEDS ORDERED: ASPIRIN 81 MG TABLET, CHEWABLE PO ONE (07:38)
[2019-01-09 07:59] LABS: ABSOLUTE EOSINOPHILS # (AUTO) 0.1 10^3/uL (0.0-0.6); ABSOLUTE LYMPHOCYTES (AUTO) 1.1 10^3/uL (0.5-4.7); ABSOLUTE MONOCYTES (AUTO) 0.6 10^3/uL (0.1-1.4); ABSOLUTE NEUT (AUTO) 4.1 10^3/uL (1.7-8.2); BASOPHILS % (AUTO) 0.3 % (0-2); EOSINOPHILS % (AUTO) 1.9 % (0-6); HEMATOCRIT 47.8 % (37.9-51.0); HEMOGLOBIN 16.4 g/dL (13.5-17.0); MEAN CORPUSCULAR HEMOGLOBIN 34.9 pg (27.0-33.4); MEAN CORPUSCULAR HGB CONC 34.3 g/dL (32.0-36.0); MEAN CORPUSCULAR VOLUME 102 fl (80-97); MONOCYTES % (AUTO) 10.7 % (3-13); PLATELET COUNT 237 10^3/uL (150-450); RED BLOOD COUNT 4.71 10^6/uL (4.35-5.55); RED CELL DISTRIBUTION WIDTH 13.1 % (11.5-14.0); SEGMENTED NEUTROPHILS % (AUTO) 68.1 % (42-78); TOTAL CELLS COUNTED % (AUTO) 100 %
--- NOTE | 2019-01-09 08:23 | RADIOLOGY REPORT (SQ) ---
EXAM DESCRIPTION: CHEST SINGLE VIEW COMPLETED DATE/TIME: 01/09/2019 8:11 am REASON FOR STUDY: cp COMPARISON: Chest films 01/05/2019, 10/30/2015, 09/29/2012 CT angio chest 03/25/2017 EXAM PARAMETERS: NUMBER OF VIEWS: One view. TECHNIQUE: Single frontal radiographic view of the chest acquired. RADIATION DOSE: NA LIMITATIONS: None. FINDINGS: LUNGS AND PLEURA: Stable 10 mm calcified nodule left lower lobe, unchanged from chest CT No acute infiltrates. No pleural effusion or pneumothorax. MEDIASTINUM AND HILAR STRUCTURES: No masses. Contour normal. HEART AND VASCULAR STRUCTURES: Heart normal in size. Normal vasculature. BONES: No acute findings. HARDWARE: None in the chest. OTHER: No other significant finding. IMPRESSION: NO ACUTE RADIOGRAPHIC FINDING IN THE CHEST. TECHNICAL DOCUMENTATION: JOB ID: [id number] [employer]- All Rights Reserved Reading location - IP/workstation name: [email or web address]
[2019-01-09 08:27] LABS: ALANINE AMINOTRANSFERASE 58 U/L (21-72); ALBUMIN 4.6 g/dL (3.5-5.0); ALKALINE PHOSPHATASE 101 U/L (38-126); ANION GAP 7 (5-19); ASPARTATE AMINO TRANSFERASE 59 U/L (17-59); BILIRUBIN,DIRECT 0.3 mg/dL (0.0-0.4); BILIRUBIN,TOTAL 0.7 mg/dL (0.2-1.3); BLOOD UREA NITROGEN 21 mg/dL (7-20); CALCIUM 9.7 mg/dL (8.4-10.2); CARBON DIOXIDE 29 mmol/L (22-30); CHLORIDE 104 mmol/L (98-107); CREATINE KINASE 40 U/L (55-170); GLUCOSE 85 mg/dL (75-110); POTASSIUM 4.7 mmol/L (3.6-5.0); SODIUM 140.4 mmol/L (137-145); TOTAL PROTEIN 7.9 g/dL (6.3-8.2)
[2019-01-09 08:38] LABS: CREATINE KINASE MB 0.24 ng/mL (<4.55)
[2019-01-09 08:41] LABS: TROPONIN I < 0.012 ng/mL
[2019-01-09] MEDS ORDERED: IPRATROPIUM/ALBUTEROL 0.5-2.5 MG/3 ML AMPUL NEB ONE (09:33)
[2019-01-09] MEDS ORDERED: METHYLPREDNISOLONE INJ 125 MG/2 ML SDV IV ONE (09:33)
--- NOTE | 2019-01-09 10:09 | ER Document Report ---
Entered by LESLY UMANA SCRIBE 01/09/19 0948 Acting as scribe for:HUMBERTO URBAN MD ED General - General Chief Complaint: Chest Pain Stated Complaint: CHEST PAIN Time Seen by Provider: 01/09/19 09:20 Mode of Arrival: Ambulatory Information source: Patient Notes: Patient is a 53 year old male presenting to the emergency department complaining of left sided chest pain onset around 0600 this morning. Patient states he was on his way to work when he began to have a sudden onset of "severe" chest pain described as a squeezing sensation that radiated into his left arm. He states the pain is now a pressure with a severity of a 1. Patient presented to the hospital complaining of similar symptoms and was admitted on 01/05/19. He had a Lexiscan cardiac stress test on 01/07/19 which was reported as normal. He states he was placed on blood thinner and blood pressure medications and took his 1st dose last night. He states he is unsure if he is having a reaction to the new medications. On careful review of the history with the patient, it appears that he developed a respiratory infection with cough wheezing and congestion about a the same time that he started having his chest pain last week that prompted his admission to the hospital. (see under Course for further details) TRAVEL OUTSIDE OF THE [place] 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 Family History: Hypertension Patient has suicidal ideation: No Patient has homicidal ideation: No - Past Medical History Cardiac Medical History: Reports: Hx Hypertension GI Medical History: Reports: Hx Gastroesophageal Reflux Disease Past Surgical History: Reports: Hx Orthopedic Surgery - Collar bone - Immunizations Hx Diphtheria, Pertussis, Tetanus Vaccination: Yes Review of Systems - Review of Systems Constitutional: No symptoms reported EENT: No symptoms reported Cardiovascular: See HPI, Chest pain Respiratory: No symptoms reported Gastrointestinal: No symptoms reported Genitourinary: No symptoms reported Male Genitourinary: No symptoms reported Musculoskeletal: See HPI Skin: No symptoms reported Hematologic/Lymphatic: No symptoms reported Neurological/Psychological: No symptoms reported -: Yes All other systems reviewed and negative Physical Exam - Vital signs Vitals: Temp Pulse Resp BP Pulse Ox 97.6 F 78 16 131/91 H 93 01/09/19 07:34 01/09/19 07:34 01/09/19 07:34 01/09/19 07:34 01/09/19 07:34 - Notes Notes: GENERAL: Alert, interacts well. No acute distress. HEAD: Normocephalic, atraumatic. EYES: Pupils equal, round, and reactive to light. Extraocular movements intact. ENT: Oral mucosa moist, tongue midline. NECK: Full range of motion. Supple. Trachea midline. LUNGS: Wheezes and rhonchi. No respiratory distress. No tenderness to anterior chest wall. HEART: Regular rate and rhythm. No murmurs, gallops, or rubs. ABDOMEN: Soft, non-tender. Non-distended. Bowel sounds present in all 4 quadrants. No guarding, rigidity, or rebound. EXTREMITIES: Moves all 4 extremities spontaneously. No edema, radial and dorsalis pedis pulses 2/4 bilaterally. No cyanosis. NEUROLOGICAL: Alert and oriented x3. Normal speech. PSYCH: Normal affect, normal mood. SKIN: Warm, dry, normal turgor. No rashes or lesions noted. Course - Re-evaluation Re-evalutation: 01/09/19 13:07 After the DuoNeb treatment, the patient was able to breathe deeper and lungs sounded better and he did feel improved. A while later he was given an albuterol treatment which helped some more. At this time he is started to have some wheezing and increased congestion again, and he does have this frequent congested cough. We had a long talk about long-term damage his cigarettes may have done, the probable respiratory type infection that he developed that prompted all his chest pressure complaints. He will be discharged on steroids, albuterol inhaler, drink lots of fluids and rest and try to avoid smoke and dust and pollen. The patient's chest x-ray, EKG, and serial troponins are all normal. - Vital Signs Vital signs: Temp Pulse Resp BP Pulse Ox 97.6 F 78 19 133/82 H 93 01/09/19 07:34 01/09/19 07:34 01/09/19 12:01 01/09/19 12:01 01/09/19 12:01 - Laboratory Result Diagrams: 01/09/19 07:52 01/09/19 07:52 Laboratory results interpreted by me: 01/09/19 01/09/19 07:52 07:52 MCV 102 H MCH 34.9 H BUN 21 H Creatine Kinase 40 L - Diagnostic Test Radiology reviewed: Image reviewed, Reports reviewed - Chest x-ray is unremarkable - EKG Interpretation by Me EKG shows normal: Sinus rhythm, [place], Intervals, QRS Complexes, ST-T Waves Rate: Normal - 75 Rhythm: NSR When compared to previous EKG there are: No significant change Discharge - Discharge Clinical Impression: Bronchitis with bronchospasm, Cough, Chest tightness or pressure Condition: Stable Disposition: HOME, SELF-CARE Additional Instructions: Bronchitis with Bronchospasm (Wheezing): You have bronchitis with bronchospasm (wheezing). Sometimes people develop wheezing with a chest cold. This occurs either because of an underlying tendency toward asthma or because the virus itself irritates the bronchial tubes. This irritation causes cough, shortness of breath, and wheezing. Emergency treatment of bronchospasm may include adrenaline shots or bronc hodilator aerosol. You may feel lightheaded and have a rapid pulse for an hour or two. Rest and get plenty of fluids. At home, we'll treat you with a bronchodilator inhaler. Corticosteroids may be required for some patients. Until you recover, avoid chemical fumes, dusts, pollens, and exercising in very cold or dry air. If you smoke, stop now! Most cases of bronchitis get better without antibiotics. We prescribe antibiotics when we believe bacteria are damaging your airways, or if there's high risk the bronchitis will worsen into pneumonia. Increase your fluid intake. A cool mist humidifier may make your lungs more comfortable. An expectorant (cough medicine that loosens phlegm) can help. Repeated episodes of bronchitis and bronchospasm may result in lung damage -- for example, chronic bronchitis, recurrent pneumonias, or emphysema. If you develop a fever, increased wheezing, chest pain, or severe shortness of breath, you should contact the doctor immediately. Start the prednisone as prescribed tomorrow. Use the dispensed albuterol inhaler 2 puffs every 4 hours for wheezing. Get the prescribed inhaler filled so you do not run out of medication. Take the Tessalon Perles as prescribed to help control your cough. Drink lots of fluids over the next several days. Get plenty of rest. Stop smoking. Try to avoid dust and pollen. Follow-up with a primary care provider for further evaluation next week if you are not improving. RETURN TO THE EMERGENCY ROOM IF ANY NEW OR WORSENING SYMPTOMS. Prescriptions: Albuterol Sulfate [Proair Hfa Inhalation Aerosol 8.5 gm Mdi] 2 puff IH Q4 PRN #1 mdi PRN Reason: Benzonatate [Tessalon Perles 100 mg Capsule] 100 mg PO ASDIR PRN #30 capsule PRN Reason: Prednisone [Deltasone 10 mg Tablet] 10 mg PO ASDIR PRN #21 tablet PRN Reason: Scribe Attestation: 01/09/19 09:49 I personally performed the services described in the documentation, reviewed and edited the documentation which was dictated to the scribe in my presence, and it accurately records my words and actions. I personally performed the services described in the documentation, reviewed and edited the documentation which was dictated to the scribe in my presence, and it accurately records my words and actions.
[2019-01-09] MEDS ORDERED: ALBUTEROL SULFATE 0.083% NEB 2.5 MG/3 ML AMPUL NEB ONE (10:39)
[2019-01-09] MEDS ORDERED: ALBUTEROL SULFATE HFA (90 MCG/PUFF) 8 GM MDI (1 MDI/ER DISP) IH ONE (13:13)
[2019-01-09] MEDS ORDERED: PREDNISONE 20 MG TABLET PO ONE (13:13)
[2019-01-09 13:36] VITALS: BP 134/98
--- NOTE | 2019-01-10 12:47 | EKG REPORT ---
SEVERITY:- NORMAL ECG - SINUS RHYTHM : Confirmed by: Nay Nieves 10-Jan-2019 12:46:07
== END 2019-01-09 13:30 | disposition home or self-care (01) ==
LOC: ER 07:17
DX: J20.9 Acute bronchitis, unspecified (principal); R07.9 Chest pain, unspecified; I10 Essential (primary) hypertension
CPT/HCPCS: 93005; 94640 ×2; 99285; 96374; 36415; 82553; 82550; 85025; 80053; 84484; 71045; 93010; J2930; J7512; J3490; J7620

== ENCOUNTER 2020-09-14 08:36 | Emergency (ER) | payer OTHER ==
--- NOTE | 2020-09-14 09:26 | EKG REPORT ---
SEVERITY:- NORMAL ECG - SINUS RHYTHM : Confirmed by: Santiago Vasquez MD 14-Sep-2020 09:26:08
--- NOTE | 2020-09-14 09:38 | RADIOLOGY REPORT (SQ) ---
EXAM DESCRIPTION: CHEST SINGLE VIEW IMAGES COMPLETED DATE/TIME: 09/14/2020 9:22 am REASON FOR STUDY: SOB COMPARISON: 01/09/2019 EXAM PARAMETERS: NUMBER OF VIEWS: One view. TECHNIQUE: Single frontal radiographic view of the chest acquired. RADIATION DOSE: NA LIMITATIONS: None. FINDINGS: LUNGS AND PLEURA: No opacities, masses or pneumothorax. No pleural effusion. Stable calci fied left basilar granuloma. MEDIASTINUM AND HILAR STRUCTURES: No masses. Contour normal. HEART AND VASCULAR STRUCTURES: Heart normal in size. Normal vasculature. BONES: No acute findings. HARDWARE: None in the chest. OTHER: No other significant finding. IMPRESSION: NO ACUTE RADIOGRAPHIC FINDING IN THE CHEST. TECHNICAL DOCUMENTATION: JOB ID: [id number] [employer]- All Rights Reserved Reading location - IP/workstation name: [email or web address]
[2020-09-14 09:55] LABS: ABSOLUTE EOSINOPHILS # (AUTO) 0.1 10^3/uL (0.0-0.6); ABSOLUTE MONOCYTES (AUTO) 0.6 10^3/uL (0.1-1.4); ABSOLUTE NEUT (AUTO) 4.6 10^3/uL (1.7-8.2); BASOPHILS % (AUTO) 0.4 % (0-2); EOSINOPHILS % (AUTO) 1.4 % (0-6); HEMATOCRIT 43.9 % (37.9-51.0); MEAN CORPUSCULAR HEMOGLOBIN 33.3 pg (27.0-33.4); MEAN CORPUSCULAR HGB CONC 34.2 g/dL (32.0-36.0); MEAN CORPUSCULAR VOLUME 97 fl (80-97); MONOCYTES % (AUTO) 8.9 % (3-13); PLATELET COUNT 174 10^3/uL (150-450); RED BLOOD COUNT 4.51 10^6/uL (4.35-5.55); RED CELL DISTRIBUTION WIDTH 13.9 % (11.5-14.0); SEGMENTED NEUTROPHILS % (AUTO) 73.3 % (42-78); TOTAL CELLS COUNTED % (AUTO) 100 %; WHITE BLOOD COUNT 6.2 10^3/uL (4.0-10.5)
[2020-09-14 10:07] LABS: ALBUMIN 4.5 g/dL (3.5-5.0); ALKALINE PHOSPHATASE 96 U/L (38-126); ANION GAP 10 (5-19); ASPARTATE AMINO TRANSFERASE 49 U/L (17-59); BILIRUBIN,DIRECT 0.3 mg/dL (0.0-0.4); BILIRUBIN,TOTAL 0.5 mg/dL (0.2-1.3); BLOOD UREA NITROGEN 16 mg/dL (7-20); CALCIUM 9.5 mg/dL (8.4-10.2); CARBON DIOXIDE 22 mmol/L (22-30); CHLORIDE 105 mmol/L (98-107); CREATINE KINASE 115 U/L (55-170); GLUCOSE 82 mg/dL (75-110); POTASSIUM 4.7 mmol/L (3.6-5.0); TOTAL PROTEIN 7.7 g/dL (6.3-8.2)
[2020-09-14 10:19] LABS: CREATINE KINASE MB 0.79 ng/mL (<4.55); TROPONIN I < 0.012 ng/mL
[2020-09-14] MEDS ORDERED: NORMAL SALINE 1000 ML 1,000 ML IV ONE (10:21)
[2020-09-14] MEDS ORDERED: METHYLPREDNISOLONE INJ 125 MG/2 ML SDV IV ONE (10:22)
[2020-09-14] MEDS ORDERED: ACETAMINOPHEN WITH CODEINE #3 TABLET PO ONE (10:22)
[2020-09-14] MEDS ORDERED: CEFTRIAXONE 1 GM/D5W RTU 1 GM/50 ML RTUPB IV ONE (10:22)
[2020-09-14] MEDS ORDERED: IPRATROPIUM/ALBUTEROL 0.5-2.5 MG/3 ML AMPUL NEB ONE (10:23)
--- NOTE | 2020-09-14 10:30 | ER Document Report ---
ED General - General Chief Complaint: Shortness Of Breath Stated Complaint: SHORT OF BREATH,COUGH,VOMITING Time Seen by Provider: 09/14/20 09:25 TRAVEL OUTSIDE OF THE [place] 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 He has been out of work since that time and was seen at an urgent care center in [facility] several days ago and diagnosed with "possible pneumonia" being seen by a midlevel provider while sitting in his car at a drive-through evaluation area. They did a nasal swab for him and told him that his testing for flu and COVID-19 was negative. They placed him on Robitussin-DM and doxycycline. He says he has stopped smoking since then has been taking the medications as prescribed but feels that his symptoms absolutely no better. Interestingly Mr. Pizano reports that he had a mild "cold" in June 2020 and apparently tested positive for Covid at that time. He says he recovered from those symptoms very quickly. 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 Denies: Hx Ulc er Musculoskeletal Medical History: Denies Hx Arthritis Past Surgical History: Reports: Hx Orthopedic Surgery - Collar bone - Immunizations Hx Diphtheria, Pertussis, Tetanus Vaccination: Yes Review of Systems - Review of Systems Notes: Constitutional: Negative for fever. HENT: Negative for sore throat. Eyes: Negative for visual changes. Cardiovascular: Negative for chest pain. Respiratory: As per HPI. Gastrointestinal: Negative for abdominal pain, vomiting or diarrhea. Genitourinary: Negative for dysuria. Musculoskeletal: Negative for back pain. Skin: Negative for rash. Neurological: Negative for headaches, weakness or numbness. 10 point ROS negative except as marked above and in HPI. Physical Exam - Vital signs Vitals: Temp Pulse Resp BP Pulse Ox 97.7 F 109 H 18 142/98 H 94 09/14/20 08:46 09/14/20 08:46 09/14/20 08:46 09/14/20 08:46 09/14/20 08:46 - Notes Notes: GENERAL: Well-developed well-nourished middle-age male appearing moderately uncomfortable. SKIN: Good turgor no rashes. HEAD: Normocephalic atraumatic. EYES: PERRLA. EOMI. Conjunctivae bilaterally injected. Sclerae clear. EARS: CANALS AND TMS CLEAR. NOSE: CLEAR. MOUTH: Moist mucosa. Good dentition. No stridor or edema. No drooling. NECK: Supple. No masses or thyromegaly. No adenopathy. Carotids 2+ without bruits. No JVD. BACK: Symmetrical without tenderness. CHEST: Rattling cough. Scattered rhonchi and mild wheezes bilaterally. Respirations unlabored. Breath sounds symmetrical. HEART: Regular rhythm. No murmur gallop or rub. ABDOMEN: Soft nontender without masses, organomegaly or rebound. Bowel sounds normally active. No bruits. GENITALIA: Deferred. EXTREMITIES: No edema. No calf tenderness. Cap refill less than 1.5 seconds. Dorsalis pedis and posterior tibial pulses 3+ and symmetrical. NEUROLOGICAL: GCS 15. Alert and oriented x3. Normal gait. Fluent speech. Cranial nerves II through XII intact. Sensorimotor and cerebellar normal. Normal tone. PSYCHIATRIC: Appropriate affect. Course - Re-evaluation Re-evalutation: 09/14/20 10:30 I reviewed the chest x-ray and I do not see any obvious infiltrate. He does have a small calcified nodule in the lower lung field on the left which has been present for several years and appears unchanged. Awaiting radiologist read of the film. I am giving this man a DuoNeb treatment. He is oxygenating normally and does not appear in respiratory distress. He is can get some Tylenol with codeine for his cough and achiness. I am going to repeat a comprehensive respir atory nasal swab. He will receive 1 L normal saline IV antibiotic give him Rocephin IV and Solu-Medrol IV as I think he primarily has a bronchitis/COPD exacerbation. 09/14/20 14:07 Wheezes resolved. Feels much better. He is requesting discharge and I think this is appropriate at this time. Findings, clinical impression and plan of treatment have been discussed with patient/family. Understanding of current findings and recommendations has been acknowledged by them and there is agreement regarding disposition and follow-up. - Vital Signs Vital signs: Temp Pulse Resp BP Pulse Ox 97.7 F 98 19 146/90 H 95 09/14/20 08:46 09/14/20 12:13 09/14/20 12:13 09/14/20 12:13 09/14/20 12:13 - Laboratory Results Result Diagrams: 09/14/20 09:30 09/14/20 09:30 Laboratory Results Interpreted: 09/14/20 09:30 ALT 58 H Critical Laboratory Results Reviewed: No Critical Results - Radiology Results Radiology Results Interpreted: 09/14/20 11:04 Chest X-Ray 09/14/20 09:08 IMPRESSION: NO ACUTE RADIOGRAPHIC FINDING IN THE CHEST. Critical Radiology Results Reviewed: No Critical Results - EKG Interpretation by Me Additional EKG results interpreted by me: 09/14/20 11:04 Twelve-lead EKG reviewed by me contemporaneously: 0919 hrs. Indication for study: Shortness of breath Rhythm: Normal sinus Rate: 89 Intervals: Normal intervals QRS axis: -[address]/T wave changes: None Comparison with prior tracing: No significant interval change since prior study 01/09/2019 Interpretation: Normal sinus rhythm Discharge - Discharge Clinical Impression: Acute exacerbation of chronic obstructive pulmonary disease (COPD) Acute bronchitis Qualifiers: Bronchitis organism: unspecified organism Qualified Code(s): J20.9 - Acute bronchitis, unspecified Condition: Stable Disposition: HOME, SELF-CARE Additional Instructions: Bronchitis You have acute bronchitis. This disease is an infection or inflammation of the air passageways in your lungs. Symptoms usually include cough, low grade fever, shortness of breath, and wheezing. The cough usually persists for a couple of weeks. Most cases of bronchitis get better without antibiotics. We prescribe anti biotics when we believe bacteria are damaging your airways, or if there's high risk the bronchitis will worsen into pneumonia. Increase your fluid intake. A cool mist humidifier may make your lungs more comfortable. An expectorant (cough medicine that loosens phlegm) can help. If you smoke, STOP!!! Recovery from bronchitis can be somewhat slow, but you should see improvement within a day or two. Repeated episodes of bronchitis may result in lung damage -- for example, chronic bronchitis, recurrent pneumonias, or emphysema. Call the doctor if you develop increasing fever, shortness of breath, chest pain, bloody sputum, or otherwise worsen. If you have not improved at all after several days, contact the physician. Take prescribed medications as instructed. COVID-19 testing here today was negative. Increase oral fluids. Work note for the next 3 days has been provided. Follow-up with your primary care doctor next 3 to 5 days. Return here as needed for new or worsening symptoms: Increasing shortness of breath Pain that is worsening or unimproved Uncontrolled vomiting High fever or shaking chills Overall worsening Prescriptions: Azithromycin 250 mg PO ASDIR PRN #6 tablet PRN Reason: Codeine Sulf [Codeine Sulfate 30 mg Tablet] 30 mg PO Q6H PRN #20 tablet PRN Reason: Cough Prednisone [Deltasone 20 mg Tablet] 2 tab PO DAILY 5 Days tablet Forms: Return to Work
[2020-09-14 15:01] VITALS: BP 166/97
== END 2020-09-14 15:01 | disposition home or self-care (01) ==
LOC: ER 08:36
DX: J20.9 Acute bronchitis, unspecified (principal); J44.1 Chronic obstructive pulmonary disease with (acute) exacerbation; R11.10 Vomiting, unspecified; F17.210 Nicotine dependence, cigarettes, uncomplicated; I10 Essential (primary) hypertension; Z20.822 Contact with and (suspected) exposure to COVID-19; Z86.16 Personal history of COVID-19
CPT/HCPCS: 93005; 94640; 99285; 96375; 96365; 36415; 87040; 82553; 82550; 85025; 0202U; 0241U; 80053; 84484; 71045; 93010; J2930; J7030; J0696; C9803